=== PATIENT | female | born 2005 | race Caucasian/White ===

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

== ENCOUNTER → 2024-12-11 09:58 | Outpatient (BNV) | payer OTHER, SELFPAY | PROVIDERS: Emergency Provider Emergency Medicine Emergency Medical Services; PCP Registered Nurse; Visit Provider Radiology Diagnostic Radiology | DX: R22.42 Localized swelling, mass and lump, left lower limb (principal); S99.912A Unspecified injury of left ankle, initial encounter | CPT/HCPCS: 73610; 73620 ==

== ENCOUNTER 2024-12-11 10:28 | Emergency (ER) | payer OTHER, SELFPAY ==
--- NOTE | ~2024-12-11 | XR_ITS ---
CLINICAL HISTORY: rolled ankle 3 view left foot Comparison: None provided Findings: No fractures or dislocations. No significant loss of joint space, osteophytes, or erosions. No ankle effusion. No radiopaque foreign body. IMPRESSION: 1. No acute findings. This document has been electronically signed by: Radames Gutierrez MD on 12/11/2024 11:06:44
--- NOTE | ~2024-12-11 | XR_ITS ---
CLINICAL HISTORY: rolled ankle, swelling 3 view left ankle Comparison: None provided Findings: There is soft tissue swelling adjacent to the lateral malleolus. There are no acute bony abnormalities. No significant loss of joint space, osteophytes, or erosions. No ankle effusion. No radiopaque foreign body. IMPRESSION: There is soft tissue swelling adjacent to the lateral malleolus. There are no acute bony abnormalities. This document has been electronically signed by: Radames Gutierrez MD on 12/11/2024 11:07:19
[2024-12-11 10:36] VITALS: BP 122/72; PULSE 93; RESP 20; TEMP 37; O2SAT 97; BMI 31.5
--- NOTE | 2024-12-11 11:07 | ED_ITS ---
HPI - General Adult General Chief complaint: Extremity Injury, Lower Stated complaint: Ankle injury Time Seen by Provider: 12/11/24 11:03 Source: patient Mode of arrival: wheelchair Limitations: no limitations History of Present Illness ED Provider: Maryjo Poe PA-C HPI narrative: Patient is a 19 year old assigned female at with no reported medical history presenting to the emergency department today with left ankle pain. Patient states that last night she rolled her ankle twice while walking down some stairs. Patient denies any head strike or loss of consciousness with the i ncident. Patient denies any dizziness, lightheadedness, abdominal pain, nausea, vomiting, fever, chills, blurry vision, double vision, loss of vision, chest pain, difficulty breathing, shortness of breath, back pain, night sweats, pain with urination, increased urinary frequency, increased urinary urgency, blood in her urine or stool, syncope or a near syncopal episode, bowel incontinence, bladder incontinence, or any other complaints at this time. Onset (ago): day(s) (1) Location: left and lower extremity Relieving factors: immobilization Exacerbating factors: movement Associated symptoms: denies other symptoms Treatments prior to arrival: none Related Data Previous Rx's ?Medication ?Instructions ?Recorded albuterol sulfate 90 mcg/actuation 2 puff inhalation Q 4-6H PRN 11/11/20 aerosol inhaler (Ventolin HFA) shortness of breath or wheezing #8.5 grams amoxicillin 875 mg-potassium 1 tab PO BID #20 tabs 09/28 clavulanate 125 mg tablet (Augmentin) prednisone 20 mg tablet 40 mg (2 x 20 mg) PO DAILY # 10 tabs 11/11/20 Allergies Allergy/AdvReac Type Severity Reaction Status Date / Time No Known Allergies (No Known Allergy Verified 12/11/24 10:39 Allergies*) Review of Systems Constitutional: Constitutional: Reports no additional constitutional complaints, Denies chills, Denies fever(s) and Denies night sweats Eyes: Eyes: Reports no additional eye complaints, Denies blurry vision, Denies change in vision, Denies diplopia, Denies eye discharge, Denies loss of vision and Denies eye pain ENT: Denies dizziness Cardiovascular: Cardiovascular: Reports no additional cardiovascular complaints, Denies chest pain, Denies lightheadedness, Denies Loss of Consciousness and Denies dyspnea Respiratory: Respiratory: Reports no additional respiratory complaints and Denies dyspnea Gastrointestinal: Gastrointestinal: Reports no additional gastrointestinal complaints, Denies abdominal pain, Denies melena, Denies hematochezia, Denies change in bowel habits and Denies change in stool character Genitourinary: Genitourinary: Denies hematuria, Denies urinary frequency, Denies dysuria, Denies urinary incontinence, Denies urinary hesitancy and Denies urinary urgency Musculoskeletal: Musculoskeletal: Reports no additional musculoskeletal complaints, Denies numbness and Denies tingling Comments: left ankle pain Neurologic: Denies dizziness, Denies loss of vision, Denies numbness and Denies tingling Psychiatric: Psychiatric: Reports no additional psychiatric complaints Endocrine: Endocrine: Reports no additional endocrine complaints Hematologic/Lymphatic: Hematologic/Lymphatic: Reports no additional hematologic/lymphatic complaints Allergic/Immunologic: Allergic/Immunologic: Reports no additional allergic/immunologic complaints PMFSH Past Medical History Attestation statement: The following information was validated with the patient. Source: old records reviewed and nursing notes reviewed Medical History Rhinitis No known health problems Social History Social History Smoked in Last 30 Days: No Use of substances other than those prescribed or required for medical reasons: No Advance Directives: No Advance Directives Information Provided: No Patient : No Physical Exam ED Vital Signs: Vital Signs - 24 hr 12/11/24 10:36 12/11/24 11:44 Temperature 98.6 F 98.6 F Pulse Rate 93 93 Respiratory Rate 20 20 Blood Pressure 122/72 122/72 Pulse Oximetry 97 97 Oxygen Delivery Method Room Air Room Air BMI result Body Mass Index 31.5 Const General: cooperative, no acute distress, alert and awake Nutritional Appearance: well nourished Orientation/consciousness: patient oriented x3 HENMT Head: Yes normal to inspection and Yes atraumatic Ears: hearing grossly normal bilaterally and external ears normal General nose exam: Normal external nose present, no nasal discharge noted and no epistaxis Face and sinus: Yes normal facial exam, No abrasion and No laceration Mouth: Normal oral and palatal mucosa present, no drooling and no muffled voice Eyes General: appearance normal, both eyes and all related structures Periorbital: periorbital findings normal Eyelids: Yes eyelids normal Conjunctivae: conjunctivae normal Pupils: Equal, round and reactive pupils present EOM: EOMs intact bilaterally Neck Neck: Yes normal visual inspection, Yes full ROM and Yes no lymphadenopathy Resp Effort & Inspection: normal respiratory effort and able to speak in complete sentences Neuro General: patient oriented x3, moves all extremities and CN's II-XI intact bilaterally Cranial nerves: Yes Equal, round and reactive pupils present Cognition (Neuro): normal cognition Extrem Other: left lateral ankle swelling pain with palpation of the left lateral ankle limited ROM of the left lateral ankle secondary to pain General: Yes capillary refill normal Psych Appearance: grossly normal Mental Status: mental status grossly normal Affect: normal affect Attitude: cooperative Thought process: Normal thought process present Thought content: Normal thought content present Insight: Good insight present (Psych) Procedures Orthopedic Splinting/Casting Injury #1: Side: left Lower Extremity Injury Location: ankle Lower Extremity Immobilizer: boot orthosis Medical Decision Making Medical Decision Making MDM Narrative: Patient is a 19 year old assigned female at with no reported medical history presenting to the emergency department today with left ankle pain. Patient's physical exam was as noted in the physical exam portion of this note. Patient's left foot and ankle x-rays showed no acute process. I explained my physical exam findings as well as all test results to the patient. I answered all questions asked by the patient. Patient's clinical presentation is most consistent with a severe sprain / strain of the left ankle with concern for ligamentous injury. Patient's left ankle / foot was placed in a tall walking boot, without incident. Patient's PMS was intact prior to and after boot placement. Patient brought her own pair of crutches and demonstrated she is able to use crutches appropriately while in the department. I stressed the importance of the patient taking her medication as directed (either prescribed or as the over the counter packaging recommends). I stressed the importance of the patient following up with her primary care provider and the orthopedic team. I stressed the importance of the patient returning to the emergency department immediately if her symptoms were to worsen or if she were to develop any dizziness, shortness of breath, difficulty breathing, chest pain, blurry vision, loss of vision, nausea, vomiting, abdominal pain, fever, chills, back pain, or any other complaints. Patient verbalized agreement and understanding with this treatment plan and discharge. Differential Diagnosis Differential Diagnoses: The differential diagnosis associated with the presentation includes Left ankle sprain Left ankle strain Left ankle ligamentous injury Admission/Observation Consideration of admission/observation: Escalation of care including admission/observation considered Patient would have been admitted to the hospital had her work up had any findin gs where hospital admission was appropriate and her clinical presentation warranted hospital admission. Independent Interpretation I performed an independent interpretation of an: Plain X-Ray Interpretation: My interpretation is in agreement with the radiologist's impression of these imaging studies. CLINICAL HISTORY: rolled ankle, swelling 3 view left ankle Comparison: None provided Findings: There is soft tissue swelling adjacent to the lateral malleolus. There are no acute bony abnormalities. No significant loss of joint space, osteophytes, or erosions. No ankle effusion. No radiopaque foreign body. IMPRESSION: There is soft tissue swelling adjacent to the lateral malleolus. There are no acute bony abnormalities. This document has been electronically signed by: Radames Gutierrez MD on 12/11/2024 11:07:19 Dictated By: Radames Gutierrez MD Signed By: Electronically signed by Radames Gutierrez MD 12/11/24 1108 CLINICAL HISTORY: rolled ankle 3 view left foot Comparison: None provided Findings: No fractures or dislocations. No significant loss of joint space, osteophytes, or erosions. No ankle effusion. No radiopaque foreign body. IMPRESSION: 1. No acute findings. This document has been electronically signed by: Radames Gutierrez MD on 12/11/2024 11:06:44 Dictated By: Radames Gutierrez MD Signed By: Electronically signed by Radames Gutierrez MD 12/11/24 3719 Radiology Impression Discussion of test interpretation with radiology: I have reviewed the radiologist's reading. Discharge Plan Discharge Clinical Impression: Ankle sprain and strain Patient Disposition: Home, Self-Care Instructions: Ankle Sprain (DC), Walking Boot (ED) Additional Instructions: Your x-ray today showed no fractures / breaks however, given your mechanism of injury and your physical exam findings - I believe you have a severe strain and possible ligamentous injury. You have been placed in a tall walking boot. You must us this when ambulating for at least 2 weeks OR until you are cleared from it by the orthopedic team. Follow up with your primary care provider and the orthopedic group. Return to the emergency department immediately if your symptoms worsen or if you develop any numbness, tingling, dizziness, shortness of breath, difficulty breathing, chest pain, blurry vision, loss of vision, nausea, vomiting, abdominal pain, fever, chills, back pain, or any other complaints. Please see the information below about our Patient Portal. If you are not yet enrolled in the [facility] Patient Portal, you will receive an enrollment email invitation following your visit to any [facility] setting. You may also self-enroll in the Patient Portal by visiting our website: [email or web address] The following information is required to access the Patient Portal: - Your [facility] Medical Record Number - Your personal home email address (must match what is in your electronic medical record, Registration staff can assist with this) - Name - Date of Capabilities of the Patient Portal: - Message some providers - View upcoming appointments - Access your health summary, medical history, and visit history - View current conditions and allergies - View procedure and lab results - View your medications, including guidelines, side effects, and precautions - Complete pre-appointment questionnaires requested by your provider - Ready summary reports of your office visits and procedures To access the Patient Portal Mobile Cam, follow these directions: - Search [employer] in the Cam Store or Google Play Store - Download the Cam - Search for [facility] - Enter your login/password Prescriptions: No Action prednisone 20 mg tablet 40 mg PO DAILY Qty: 10 0RF amoxicillin-pot clavulanate [Augmentin] 875-125 mg tablet 1 tab PO BID Qty: 20 0RF albuterol sulfate [Ventolin HFA] 90 mcg/actuation HFA aerosol inhaler 2 puff inhalation Q4-6H PRN (Reason: shortness of breath or wheezing) Qty: 8.5 0RF Referrals: [facility] [Provider Group] Referral Note: Call to establish and follow up with the orthopedic team. Sourav Reddy PA-C [Primary Care Provider, Internal Medicine] Interventions: ED Discharge Assessment Last Done: 12/11/24 11:44 Discharge Date/Time: 12/11/24 11:44 Print Language: Estonian
--- OUTSIDE RECORDS SUMMARY | 2024-12-11 11:07 | XMS_ITS | Data Portability ---
Author Organization [facility], Main Office Address [address] [facility] [address] [place] [id number] Care Team Providers Care Machine Hoop Maker Helper Name Role Phone SHORTY REDDYROSACandice Primary Care Provider [phone] CHRISTOPHER TIMMONS Orthopedic Surgeon Assessment Encounter Date Assessment Date Assessment LastModified by Organization Details LastModified Time 10/24/2022 10/24/2022 This service was provided using telemedicine. Patient consented to video & audio visit Patient was located in the [facility]. Provider was located in the office. No other persons participated in the telemedicine visit except for the patient unless otherwise indicated here. Total time of visit was minutes. [email or web address] Not available 10/24/2022 09:49:51 11/14/2022 11/14/2022 This service was provided using telemedicine. Patient consented to Patient was located in the [facility]. Provider was located in the office. No other persons participated in the telemedicine visit except for the patient unless otherwise indicated here. Total time of visit was minutes. Not available 11/14/2022 09:35:07 Plan of Treatment Reminders Order Date Submit Date Provider Last Modified By Organization Details Last Modified Time Details Appointments None record ed. Lab lipid panel, serum 2024 025 LILIYA [facility] (Centralized Electronic Ordering - All Locations), Patient Can Go To The Location Of Their Choice, 12:05:56 CMP, serum or plasma 2024 025 LILIYA [facility] (Centralized Electronic Ordering - All Locations), Patient Can Go To The Location Of Their Choice, 12:05:52 TSH + free T4, serum 2024 025 LILIYA [facility] (Centralized Electronic Ordering - All Locations), Patient Can Go To The Location Of Their Choice, 12:05:53 CBC w/ auto diff 2024 025 LILIYA [facility] (Centralized Electronic Ordering - All Locations), Patient Can Go To The Location Of Their Choice, 12:05:55 vitami n D, 25-hyd maida, total, serum 2024 025 LILIYA [facility], [address], [place], [address], 12:05:56 Referral gyneco logist referr al - due for screen ing 2024 025 [email or web address] [facility], [address], [place], [address], 14:27:29 dermat ologis t referr al - Acne on face and back. 2022 023 [email or web address] [facility], [address], [address], [place], [address], 09:41:25 Procedures None record ed. Surgeries None record ed. Imaging None record ed. Medication Orders ProAir HFA 90 mcg/ac tuatio n aeroso l inhale r [address] [facility] [place]armacy #[id number], [address] [place], [address], 13:50:42 Zepbou nd 2.5 mg/0.5 mL subcut aneous pen inject or [address] [facility] ([place] [place]Pharmacy #[id number], [address] [place], [address], 5 05:01:14 Azelex 20 % topica l cream 2022 023 gay [id number], [address] [facility] [place], [address], 13:48:55 escita lopram 20 mg tablet 2022 023 [email or web address] [id number], [address] [facility] [place], [address], 15:39:37 escita lopram 10 mg tablet 2022 023 [email or web address] [id number], [address] [facility] [place], [address], 15:39:31 Patient TargetsNo targets recorded. Patient Instructions Encounter Date Encounter Id Patient Instructions Last Modified By Organization Details Last Modified Time 09/13/2022 [id number] depression treatment: care instructions [email or web address] Not available 09/13/2022 11:23:32 anxiety disorder : care instructions [email or web address] Not available 09/13/2022 11:23:32 starting a weigh t loss plan: care instructions [email or web address] Not available 09/13/2022 11:38:27 To call or retur n for worsening or concerns [email or web address] Not available 09/13/2022 11:26:27 10/24/2022 [id number] managing your allergies: care instructions [email or web address] Not available 10/24/2022 09:50:23 allergies: care instructions [email or web address] Not available 10/24/2022 09:50:23 To call or retur n for worsening or concerns [email or web address] Not available 10/24/2022 09:49:34 04/23/2023 [id number] acne: care instructions [email or web address] Not available 04/23/2023 16:01:49 08/27/2024 [id number] anal fissure: care instructions [email or web address] Not available 08/27/2024 14:16:22 Cervical Cancer Screening [email or web address] Not available 08/27/2024 13:56:03 To call or retur n for worsening or concerns [email or web address] Not available 08/27/2024 13:52:44 Reason for Referral [employer] Referral for A cne Acne on face and back. Referring Physician: Barbara Maldonado, Internal Medicine, Encounter Date: 04/23/2023 Data Base Administrator Referral for Sc reening for malignant neoplasm of cervix due for screening Referring Physician: Sourav Reddy, Family Medicine, Encounter Date: 08/27/2024 Results Created Date Observation Date Name Description Value Unit Range Abnormal Flag Note LastModifiedBy Organization Detail LastModifiedTime 08/23/1908/22/2022 UA W/REF NAZARIO CULTU RE appear/color YELLO W TURBI D Not Available [facility] (Centralized Electronic Ordering - All Locations) Patient Can Go To The Location Of Their Choice, 08/22/2022 14:36:26 08/23/1908/22/2022 UA W/REF NAZARIO CULTU RE sp. gravity 1.020 (1.002 -1.030 ) Not Available [facility] (Centralized Electronic Ordering - All Locations) Patient Can Go To The Location Of Their Choice, 08/22/2022 14:36:26 08/23/1908/22/2022 UA W/REF NAZARIO CULTU RE urine pH 6.0 (5.0-8 .0) Not Available [facility] (Centralized Electronic Ordering - All Locations) Patient Can Go To The Location Of Their Choice, 08/22/2022 14:36:26 08/23/1908/22/2022 UA W/REF NAZARIO CULTU RE urine albumin TRACE (neg) abnormal Not Available [facility] ([facility] Order[facility] - All Locations) Patient Can Go To The Location Of Their Choice, 08/22/2022 14:36:26 08/23/1908/22/2022 UA W/REF NAZARIO CULTU RE urine glucose NEGATI VE (neg) Not Available [facility] (Centralized Electronic Ordering - All Locations) Patient Can Go To The Location Of Their Choice, 08/22/2022 14:36:26 08/23/1908/22/2022 UA W/REF NAZARIO CULTU RE urine ketones NEGATI VE (neg) Not Available [facility] (Centralized Electronic Ordering - All Locations) Patient Can Go To The Location Of Their Choice, 08/22/2022 14:36:26 08/23/19 23 08/22/2022 UA W/REF NAZARIO CULTU RE urine bilirubin NEGATI VE (neg) Not Available [facility] (Centralized [facility] Ordering - All Locations) Patient Can Go To The Location Of Their Choice, 08/22/2022 14:36:26 08/23/19 23 08/22/2022 UA W/REF NAZARIO CULTU RE urine hemoglobin 1+ (neg) abnormal Not Available [facility] ([facility] Order[facility] - All Locations) Patient Can Go To The Location Of Their Choice, 08/22/2022 14:36:26 08/23/19 23 08/22/2022 UA W/REF NAZARIO CULTU RE urine nitrite NEGATI VE (neg) Not Available [facility] (Centralized Electronic Ordering - All Locations) Patient Can Go To The Location Of Their Choice, 08/22/2022 14:36:26 08/23/19 23 08/22/2022 UA W/REF NAZARIO CULTU RE urine leukocyte TRACE (neg) abnormal Not Available [facility] ([facility] Order[facility] - All Locations) Patient Can Go To The Location Of Their Choice, 08/22/2022 14:36:26 08/23/19 23 08/22/2022 UA W/REF NAZARIO CULTU RE urobilinogen NORMAL mg/dL (norm) Not Available [facility] ([facility] Order[facility] - All Locations) Patient Can Go To The Location Of Their Choice, 08/22/2022 14:36:26 08/23/19 23 08/22/2022 UA W/REF NAZARIO CULTU RE urine WBCs 6 /hpf (0-5) high Not Available [facility] (Centralized Electronic Ordering - All Locations) Patient Can Go To The Location Of Their Choice, 08/22/2022 14:36:26 08/23/19 23 08/22/2022 UA W/REF NAZARIO CULTU RE urine RBCs 2 /hpf (0-3) Not Available [facility] ([facility]ized [facility] Ordering - All Locations) Patient Can Go To The Location Of Their Choice, 08/22/2022 14:36:26 08/23/19 23 08/22/2022 UA W/REF NAZARIO CULTU RE bacteria HEAVY hpf (neg) abnormal Not Available [facility] ([facility] Ordering - All Locations) Patient Can Go To The Location Of Their Choice, 08/22/2022 14:36:26 08/23/1908/22/2022 UA W/REF NAZARIO CULTU RE mucus SLIGHT /lpf Not Available [facility] ([facility] Ordering - All Locations) Patient Can Go To The Location Of Their Choice, 08/22/2022 14:36:26 08/23/1908/22/2022 UA W/REF NAZARIO CULTU RE squamous epith 24 /hpf (0-8) high Not Available [facility] ([facility] Order[facility] - All Locations) Patient Can Go To The Location Of Their Choice, 08/22/2022 14:36:26 08/23/1908/22/2022 UA W/REF NAZARIO CULTU RE clarity TURBID (clear ) abnormal Not Available [facility] ([facility] Ordering - All Locations) Patient Can Go To The Location Of Their Choice, 08/22/2022 14:36:26 08/23/1908/22/2022 UA W/REF NAZARIO CULTU RE culture indication CULTUR E INDICA JULES Not Available [facility] ([facility]ized [facility] Ordering - All Locations) Patient Can Go To The Location Of Their Choice, 08/22/2022 14:36:26 08/23/1908/22/2022 COMPL ETE CBC WITH DIFF WBC 8.4 K/mm3 (4.0-1 1.0) Not Available [facility] (Centralized Electronic Ordering - All Locations) Patient Can Go To The Location Of Their Choice, 08/22/2022 15:00:45 08/23/1908/22/2022 COMPL ETE CBC WITH DIFF RBC 5.03 M/mm3 (4.20- 5.40) Not Available [facility] (Central[facility] Ordering - All Locations) Patient Can Go To The Location Of Their Choice, 08/22/2022 15:00:45 08/23/1908/22/2022 COMPL ETE CBC WITH DIFF HGB 14.3 gm/dL (11.7- 15.5) Not Available [facility] ([facility]ized Electronic Ordering - All Locations) Patient Can Go To The Location Of Their Choice, 08/22/2022 15:00:45 08/23/1908/22/2022 COMPL ETE CBC WITH DIFF HCT 44.1 % (35.7- 45.8) Not Available [facility] ([facility]ized Electronic Ordering - All Locations) Patient Can Go To The Location Of Their Choice, 08/22/2022 15:00:45 08/23/1908/22/2022 COMPL ETE CBC WITH DIFF MCV 87.7 fL (80.0- 100.0) Not Available [facility] (Centralized Electronic Ordering - All Locations) Patient Can Go To The Location Of Their Choice, 08/22/2022 15:00:45 08/23/1908/22/2022 COMPL ETE CBC WITH DIFF MCH 28.4 pg (27.0- 34.0) Not Available [facility] ([facility] Ordering - All Locations) Patient Can Go To The Location Of Their Choice, 08/22/2022 15:00:45 08/23/1908/22/2022 COMPL ETE CBC WITH DIFF MCHC 32.4 g/dL (33.0- 37.0) low Not Available [facility] ([facility] Ordering - All Locations) Patient Can Go To The Location Of Their Choice, 08/22/2022 15:00:45 08/23/1908/22/2022 COMPL ETE CBC WITH DIFF plt 375 K/mm3 (150-4 60) Not Available [facility] ([facility] Ordering - All Locations) Patient Can Go To The Location Of Their Choice, 08/22/2022 15:00:45 08/23/1908/22/2022 COMPL ETE CBC WITH DIFF RDW-SD 45.4 fL (<47.0 ) Not Available [facility] ([facility] Ordering - All Locations) Patient Can Go To The Location Of Their Choice, 08/22/2022 15:00:45 08/23/1908/22/2022 COMPL ETE CBC WITH DIFF MPV 9.3 fL (9.4-1 2.4) low Not Available [facility] ([facility] Ordering - All Locations) Patient Can Go To The Location Of Their Choice, 08/22/2022 15:00:45 08/23/1908/22/2022 COMPL ETE CBC WITH DIFF automated NRBC 0.0 #/100 _WBC' s Not Available [facility] ([facility] Ordering - All Locations) Patient Can Go To The Location Of Their Choice, 08/22/2022 15:00:45 08/23/1908/22/2022 COMPL ETE CBC WITH DIFF abs. NRBC 0.0 K/mm3 Not Available [facility] (Centralized [facility] Ordering - All Locations) Patient Can Go To The Location Of Their Choice, 08/22/2022 15:00:45 08/23/1908/22/2022 COMPL ETE CBC WITH DIFF neut # 5.1 K/mm3 (1.3-7 .0) Not Available [facility] (Centralized Electronic Ordering - All Locations) Patient Can Go To The Location Of Their Choice, 08/22/2022 15:00:45 08/23/1908/22/2022 COMPL ETE CBC WITH DIFF lymph # 2.4 K/mm3 (0.8-3 .1) Not Available [facility] ([facility]ized [facility] Ordering - All Locations) Patient Can Go To The Location Of Their Choice, 08/22/2022 15:00:45 08/23/1908/22/2022 COMPL ETE CBC WITH DIFF mono# 0.7 K/mm3 (0.4-0 .9) Not Available [facility] (Centralized Electronic Ordering - All Locations) Patient Can Go To The Location Of Their Choice, 08/22/2022 15:00:45 08/23/1908/22/2022 COMPL ETE CBC WITH DIFF eo # 0.1 K/mm3 (0.0-0 .4) Not Available [facility] ([facility] Ordering - All Locations) Patient Can Go To The Location Of Their Choice, 08/22/2022 15:00:45 08/23/1908/22/2022 COMPL ETE CBC WITH DIFF baso # 0.1 K/mm3 (0.0-0 .1) Not Available [facility] ([facility] Ordering - All Locations) Patient Can Go To The Location Of Their Choice, 08/22/2022 15:00:45 08/23/1908/22/2022 COMPL ETE CBC WITH DIFF abs. imm gran 0.0 K/mm3 Not Available [facility] ([facility] Order[facility] - All Locations) Patient Can Go To The Location Of Their Choice, 08/22/2022 15:00:45 08/23/1908/22/2022 COMPL ETE CBC WITH DIFF neut 60.4 % (44-76 ) Not Available [facility] ([facility] Electronic Ordering - All Locations) Patient Can Go To The Location Of Their Choice, 08/22/2022 15:00:45 08/23/1908/22/2022 COMPL ETE CBC WITH DIFF lymph 28.6 % (15-43 ) Not Available [facility] ([facility]ized Electronic Ordering - All Locations) Patient Can Go To The Location Of Their Choice, 08/22/2022 15:00:45 08/23/1908/22/2022 COMPL ETE CBC WITH DIFF monocyte 8.7 % (4.5-1 0.5) Not Available [facility] ([facility] Ordering - All Locations) Patient Can Go To The Location Of Their Choice, 08/22/2022 15:00:45 08/23/1908/22/2022 COMPL ETE CBC WITH DIFF eo 1.4 % (0-6) Not Available [facility] ([facility] Ordering - All Locations) Patient Can Go To The Location Of Their Choice, 08/22/2022 15:00:45 08/23/1908/22/2022 COMPL ETE CBC WITH DIFF baso 0.7 % (0-2) Not Available [facility] ([facility] Ordering - All Locations) Patient Can Go To The Location Of Their Choice, 08/22/2022 15:00:45 08/23/1908/22/2022 COMPL ETE CBC WITH DIFF imm gran 0.2 % Not Available [facility] ([facility] Ordering - All Locations) Patient Can Go To The Location Of Their Choice, 08/22/2022 15:00:45 08/23/1908/22/2022 COMPR EHENS BENJI METAB OLIC PANL glucose 90 mg/dL (70-99 ) Fasti ng Not Available [facility] ([facility] Ordering - All Locations) Patient Can Go To The Location Of Their Choice, 08/22/2022 16:44:49 08/23/1908/22/2022 COMPR EHENS BENJI METAB OLIC PANL BUN 7 mg/dL (6-20) Not Available [facility] ([facility] Ordering - All Locations) Patient Can Go To The Location Of Their Choice, 08/22/2022 16:44:49 08/23/19 23 08/22/2022 COMPR EHENS BENJI METAB OLIC PANL creatinine 0.7 mg/dL (0.5-1 .0) Not Available [facility] ([facility] Ordering - All Locations) Patient Can Go To The Location Of Their Choice, 08/22/2022 16:44:49 08/23/19 23 08/22/2022 COMPR EHENS BENJI METAB OLIC PANL sodium 139 mmol/ L (133-1 45) Not Available [facility] ([facility] Order[facility] - All Locations) Patient Can Go To The Location Of Their Choice, 08/22/2022 16:44:49 08/23/19 23 08/22/2022 COMPR EHENS BENJI METAB OLIC PANL potassium 4.7 mmol/ L (3.6-5 .2) Not Available [facility] ([facility] Order[facility] - All Locations) Patient Can Go To The Location Of Their Choice, 08/22/2022 16:44:49 08/23/1908/22/2022 COMPR EHENS BENJI METAB OLIC PANL chloride 103 mmol/ L (98-10 7) Not Available [facility] ([facility] Ordering - All Locations) Patient Can Go To The Location Of Their Choice, 08/22/2022 16:44:49 08/23/1908/22/2022 COMPR EHENS BENJI METAB OLIC PANL bicarbonate 27 mmol/ L (22-29 ) Not Available [facility] ([facility] Order[facility] - All Locations) Patient Can Go To The Location Of Their Choice, 08/22/2022 16:44:49 08/23/1908/22/2022 COMPR EHENS BENJI METAB OLIC PANL anion gap 9 (4-17) Not Available [facility] ([facility] Order[facility] - All Locations) Patient Can Go To The Location Of Their Choice, 08/22/2022 16:44:49 08/23/1908/22/2022 COMPR EHENS BENJI METAB OLIC PANL albumin 5.0 gm/dL (3.4-4 .8) high Not Available [facility] ([facility] Order[facility] - All Locations) Patient Can Go To The Location Of Their Choice, 08/22/2022 16:44:49 08/23/1908/22/2022 COMPR EHENS BENJI METAB OLIC PANL calcium 10.0 mg/dL (8.6-1 0.5) Not Available [facility] ([facility] Ordering - All Locations) Patient Can Go To The Location Of Their Choice, 08/22/2022 16:44:49 08/23/19 23 08/22/2022 COMPR EHENS BENJI METAB OLIC PANL bilirubin,to brent 0.5 mg/dL (0-1.2 ) Not Available [facility] ([facility] Ordering - All Locations) Patient Can Go To The Location Of Their Choice, 08/22/2022 16:44:49 08/23/1908/22/2022 COMPR EHENS BENJI METAB OLIC PANL total protein 7.6 gm/dL (6.2-8 .2) Not Available [facility] ([facility] Order[facility] - All Locations) Patient Can Go To The Location Of Their Choice, 08/22/2022 16:44:49 08/23/1908/22/2022 COMPR EHENS BENJI METAB OLIC PANL Ag ratio 1.9 Not Available [facility] ([facility] Ordering - All Locations) Patient Can Go To The Location Of Their Choice, 08/22/2022 16:44:49 08/23/1908/22/2022 COMPR EHENS BENJI METAB OLIC PANL AST 21 U/L (0-32) Not Available [facility] ([facility] Order[facility] - All Locations) Patient Can Go To The Location Of Their Choice, 08/22/2022 16:44:49 08/23/1908/22/2022 COMPR EHENS BENJI METAB OLIC PANL alk phos 102 U/L (35-10 4) Not Available [facility] ([facility] Ordering - All Locations) Patient Can Go To The Location Of Their Choice, 08/22/2022 16:44:49 08/23/19 23 08/22/2022 COMPR EHENS BENJI METAB OLIC PANL ALT 22 U/L (0-33) Not Available [facility] ([facility] Order[facility] - All Locations) Patient Can Go To The Location Of Their Choice, 08/22/2022 16:44:49 08/23/1908/22/2022 COMPR EHENS BENJI METAB OLIC PANL estimated GFR creatinine 126 mL/mi n/1.7 3_M2 Creat inine based estim ated glome rular filtr ation (eGFR ) in adult s is calcu lated using the Natio nal Kidne y Found ation recom wallace d 2020 CKD-E PI equat ion. Estim ates GFR from serum creat inine , age and sex. Not Available [facility] ([facility] Ordering - All Locations) Patient Can Go To The Location Of Their Choice, 08/22/2022 16:44:49 08/23/1908/22/2022 IRON & TIBC iron 107 mcg/d L (30-16 0) Not Available [facility] ([facility] Order[facility] - All Locations) Patient Can Go To The Location Of Their Choice, 08/22/2022 16:44:51 08/23/1908/22/2022 IRON & TIBC unsaturated iron binding capac 247 mcg/d L (110-3 70) Not Available [facility] ([facility] Order[facility] - All Locations) Patient Can Go To The Location Of Their Choice, 08/22/2022 16:44:51 08/23/1908/22/2022 IRON & TIBC est T. iron bind capacity 354 mcg/d L (140-5 30) Not Available [facility] ([facility] Order[facility] - All Locations) Patient Can Go To The Location Of Their Choice, 08/22/2022 16:44:51 08/23/1908/22/2022 IRON & TIBC % iron saturation 30 % (20-55 ) Not Available [facility] ([facility] Order[facility] - All Locations) Patient Can Go To The Location Of Their Choice, 08/22/2022 16:44:51 08/23/1908/22/2022 LIPID PANEL cholesterol, total 159 mg/dL (<170) Not Available [facility] ([facility] - [facility] Locations) Patient Can Go To The Location Of Their Choice, 08/22/2022 16:44:52 08/23/1908/22/2022 LIPID PANEL triglyceride 58 mg/dL (<90) Fasti ng Not Available [facility] ([facility] Order[facility] - All Locations) Patient Can Go To The Location Of Their Choice, 08/22/2022 16:44:52 08/23/1908/22/2022 LIPID PANEL HDL chol 54 mg/dL (>45) Not Available [facility] ([facility] Order[facility] - All Locations) Patient Can Go To The Location Of Their Choice, 08/22/2022 16:44:52 08/23/1908/22/2022 LIPID PANEL LDL cholesterol, calculated 93 mg/dL (0-109 ) Not Available [facility] ([facility] Order[facility] - All Locations) Patient Can Go To The Location Of Their Choice, 08/22/2022 16:44:52 08/23/1908/22/2022 LIPID PANEL non HDL cholesterol (calc) 105 mg/dL (<120) Not Available [facility] ([facility] - All Locations) Patient Can Go To The Location Of Their Choice, 08/22/2022 16:44:52 08/23/1908/22/2022 VITAM IN B12 vitamin B12 742 pg/mL (232-1 245) Not Available [facility] ([facility] Order[facility] - All Locations) Patient Can Go To The Location Of Their Choice, 08/22/2022 16:55:51 08/23/1908/22/2022 JAIRO TIN ferritin 21 NG/mL (6-70) Not Available [facility] ([facility] Order[facility] - All Locations) Patient Can Go To The Location Of Their Choice, 08/22/2022 16:55:53 08/23/1908/22/2022 FOLIC ACID folic acid 11.6 NG/mL (4.8-3 7.3) Not Available [facility] ([facility] Order[facility] - All Locations) Patient Can Go To The Location Of Their Choice, 08/22/2022 16:55:54 08/23/1908/22/2022 FREE T4 free T4 1.28 NG/dL (0.70- 1.80) Not Available [facility] ([facility] Order[facility] - All Locations) Patient Can Go To The Location Of Their Choice, 08/22/2022 16:55:55 08/23/1908/22/2022 TSH TSH 0.98 uIU/m L (0.4-4 .2) Not Available [facility] ([facility] Order[facility] - All Locations) Patient Can Go To The Location Of Their Choice, 08/22/2022 16:55:56 08/23/19 23 08/22/2022 25OH VITAM IN D 25OH vitamin D 21.2 NG/mL (20-50 ) Not Available [facility] ([facility] Order[facility] - All Locations) Patient Can Go To The Location Of Their Choice, 08/22/2022 16:55:57 08/23/1908/22/2022 URINE CULTU RE specimen description URINE Not Available [facility] ([facility] Loc[facility]) Patient Can Go To The Location Of Their Choice, 08/23/2022 13:18:40 08/23/1908/22/2022 URINE CULTU RE special requests NONE Reflex ed from [id number] Not Available [facility] ([facility] Order[facility] - All Locations) Patient Can Go To The Location Of Their Choice, 08/23/2022 13:18:40 08/23/19 23 08/23/2022 URINE CULTU RE culture abnormal 10-50 ,000 COL/M L STREP TOCOC US MITIS /STRE PTOCO CCUS ORALI S This isola te was ident ified using Maldi -TOF syste m SUSCE PTIBI LITY TESTI NG NOT ROUTI CHAZ PERFO RMED ON THIS ISOLA TE. Not Available [facility] ([facility] Order[facility] - All Locations) Patient Can Go To The Location Of Their Choice, 08/23/2022 13:18:40 08/23/1908/23/2022 URINE CULTU RE report status FINAL 2022 Not Available [facility] ([facility] Order[facility] - All Locations) Patient Can Go To The Location Of Their Choice, 08/23/2022 13:18:40 08/28/19 25 08/28/2024 CMP14 +EGFR glucose 91 mg/dL 70-99 normal Not Available [facility] ([facility]) [address] [facility], [place], [address], 08/28/2024 12:05:52 08/28/19 25 08/28/2024 CMP14 +EGFR BUN 7 mg/dL 6-20 normal Not Available [facility] ([facility]) [address] [facility] [place], [address], 08/28/2024 12:05:52 08/28/19 25 08/28/2024 CMP14 +EGFR creatinine 0.69 mg/dL 0.57-1 .00 normal Not Available [facility] ([facility]) [address] [place], [address], 08/28/2024 12:05:52 08/28/19 25 08/28/2024 CMP14 +EGFR eGFR 127 mL/mi n/1.7 3 >59 normal Not Available [facility] ([facility]) [address] [place], [address], 08/28/2024 12:05:52 08/28/19 25 08/28/2024 CMP14 +EGFR BUN/creatini ne ratio 10 9-23 normal Not Available [facility] ([facility]) [address] [place], [address], 08/28/2024 12:05:52 08/28/19 25 08/28/2024 CMP14 +EGFR sodium 141 mmol/ L 134-14 4 normal Not Available [facility] ([facility]) [address] [place], [address], 08/28/2024 12:05:52 08/28/19 25 08/28/2024 CMP14 +EGFR potassium 4.4 mmol/ L 3.5-5. 2 normal Not Available [facility] ([facility]) [address] [place], [address], 08/28/2024 12:05:52 08/28/19 25 08/28/2024 CMP14 +EGFR chloride 104 mmol/ L 96-106 normal Not Available [facility] ([facility]) [address] [facility] [place], [address], 08/28/2024 12:05:52 08/28/19 25 08/28/2024 CMP14 +EGFR carbon dioxide, total 19 mmol/ L 20-29 below low normal Not Available [facility] ([facility]) [address] [facility] [place], [address], 08/28/2024 12:05:52 08/28/19 25 08/28/2024 CMP14 +EGFR calcium 9.1 mg/dL 8.7-10 .2 normal Not Available [facility] ([facility]) [address] [facility] [place], [address], 08/28/2024 12:05:52 08/28/19 25 08/28/2024 CMP14 +EGFR protein, total 6.7 g/dL 6.0-8. 5 normal Not Available [facility] ([facility]) [address] [facility] [place], [address], 08/28/2024 12:05:52 08/28/19 25 08/28/2024 CMP14 +EGFR albumin 4.2 g/dL 4.0-5. 0 normal Not Available [facility] ([facility]) [address] [facility] [place], [address], 08/28/2024 12:05:52 08/28/19 25 08/28/2024 CMP14 +EGFR globulin, total 2.5 g/dL 1.5-4. 5 Not Available [facility] ([facility]) [address] [facility] [place], [address], 08/28/2024 12:05:52 08/28/19 25 08/28/2024 CMP14 +EGFR bilirubin, total 0.5 mg/dL 0.0-1. 2 normal Not Available [facility] ([facility]) [address] [facility] [place], [address], 08/28/2024 12:05:52 08/28/19 25 08/28/2024 CMP14 +EGFR alkaline phosphatase 88 IU/L 44-121 normal Not Available [facility] ([facility]) [address] [place], [address], 08/28/2024 12:05:52 08/28/19 25 08/28/2024 CMP14 +EGFR AST (SGOT) 27 IU/L 0-40 normal Not Available [facility] ([facility]) [address] [place], [address], 08/28/2024 12:05:52 08/28/19 25 08/28/2024 CMP14 +EGFR ALT (SGPT) 34 IU/L 0-32 above high normal Not Available [facility] ([facility]) [address] [place], [address], 08/28/2024 12:05:52 08/28/19 25 08/28/2024 TSH+F REE T4 TSH 1.280 uIU/m L 0.450- 4.500 normal Not Available [facility] ([facility]) [address] [place], [address], 08/28/2024 12:05:53 08/28/19 25 08/28/2024 TSH+F REE T4 T4,free(dire ct) 1.51 NG/dL 0.82-1 .77 normal Not Available [facility] ([facility]) [address] [place], [address], 08/28/2024 12:05:53 08/28/19 25 08/28/2024 CBC WITH DIFFE RENTI AL/PL ATELE T WBC 11.4 x10e3 /uL 3.4-10 .8 above high normal Not Available [facility] ([facility]) [address] [place], [address], 08/28/2024 12:05:55 08/28/19 25 08/28/2024 CBC WITH DIFFE RENTI AL/PL ATELE T RBC 5.65 x10e6 /uL 3.77-5 .28 above high normal Not Available [facility] ([facility]) [address] [place], [address], 08/28/2024 12:05:55 08/28/19 25 08/28/2024 CBC WITH DIFFE RENTI AL/PL ATELE T hemoglobin 17.9 g/dL 11.1-1 5.9 above high normal Not Available [facility] ([facility]) [address] [place], [address], 08/28/2024 12:05:55 08/28/19 25 08/28/2024 CBC WITH DIFFE RENTI AL/PL ATELE T hematocrit 52.2 % 34.0-4 6.6 above high normal Not Available [facility] ([facility]) [address] [place], [address], 08/28/2024 12:05:55 08/28/19 25 08/28/2024 CBC WITH DIFFE RENTI AL/PL ATELE T MCV 92 fL 79-97 normal Not Available [facility] ([facility]) [address] [place], [address], 08/28/2024 12:05:55 08/28/19 25 08/28/2024 CBC WITH DIFFE RENTI AL/PL ATELE T MCH 31.7 pg 26.6-3 3.0 normal Not Available [facility] ([facility]) [address] [place], [address], 08/28/2024 12:05:55 08/28/19 25 08/28/2024 CBC WITH DIFFE RENTI AL/PL ATELE T MCHC 34.3 g/dL 31.5-3 5.7 normal Not Available [facility] ([facility]) [address] [place], [address], 08/28/2024 12:05:55 08/28/19 25 08/28/2024 CBC WITH DIFFE RENTI AL/PL ATELE T RDW 12.5 % 11.7-1 5.4 Not Available [facility] ([facility]) [address] [facility] [place], [address], 08/28/2024 12:05:55 08/28/19 25 08/28/2024 CBC WITH DIFFE RENTI AL/PL ATELE T platelets 449 x10e3 /uL 150-45 0 normal Not Available [facility] ([facility]) [address] [facility], [place], [address], 08/28/2024 12:05:55 08/28/19 25 08/28/2024 CBC WITH DIFFE RENTI AL/PL ATELE T neutrophils 60 % not estab. normal Not Available [facility] ([facility]) [address] [facility], [place], [address], 08/28/2024 12:05:55 08/28/19 25 08/28/2024 CBC WITH DIFFE RENTI AL/PL ATELE T lymphs 29 % not estab. normal Not Available [facility] ([facility]) [address] [facility], [place], [address], 08/28/2024 12:05:55 08/28/19 25 08/28/2024 CBC WITH DIFFE RENTI AL/PL ATELE T monocytes 8 % not estab. normal Not Available [facility] ([facility]) [address] [facility], [place], [address], 08/28/2024 12:05:55 08/28/19 25 08/28/2024 CBC WITH DIFFE RENTI AL/PL ATELE T eos 2 % not estab. normal Not Available [facility] ([facility]) [address] [facility], [place], [address], 08/28/2024 12:05:55 08/28/19 25 08/28/2024 CBC WITH DIFFE RENTI AL/PL ATELE T basos 1 % not estab. normal Not Available [facility] ([facility]) [address] [place], [address], 08/28/2024 12:05:55 08/28/19 25 08/28/2024 CBC WITH DIFFE RENTI AL/PL ATELE T immature cells BOOTH CASHIER Not Available [facility] ([facility]) [address] [place], [address], 08/28/2024 12:05:55 08/28/19 25 08/28/2024 CBC WITH DIFFE RENTI AL/PL ATELE T neutrophils (absolute) 6.9 x10e3 /uL 1.4-7. 0 normal Not Available [facility] ([facility]) [address] [facility], [place], [address], 08/28/2024 12:05:55 08/28/19 25 08/28/2024 CBC WITH DIFFE RENTI AL/PL ATELE T lymphs (absolute) 3.3 x10e3 /uL 0.7-3. 1 above high normal Not Available [facility] ([facility]) [address] [place], [address], 08/28/2024 12:05:55 08/28/19 25 08/28/2024 CBC WITH DIFFE RENTI AL/PL ATELE T monocytes(ab solute) 0.9 x10e3 /uL 0.1-0. 9 normal Not Available [facility] ([facility]) [address] [place], [address], 08/28/2024 12:05:55 08/28/19 25 08/28/2024 CBC WITH DIFFE RENTI AL/PL ATELE T eos (absolute) 0.2 x10e3 /uL 0.0-0. 4 normal Not Available [facility] ([facility]) [address] [place], [address], 08/28/2024 12:05:55 08/28/19 25 08/28/2024 CBC WITH DIFFE RENTI AL/PL ATELE T baso (absolute) 0.1 x10e3 /uL 0.0-0. 2 normal Not Available [facility] ([facility]) [address] [place], [address], 08/28/2024 12:05:55 08/28/19 25 08/28/2024 CBC WITH DIFFE RENTI AL/PL ATELE T immature granulocytes 0 % not estab. Not Available [facility] ([facility]) [address] [facility], [place], [address], 08/28/2024 12:05:55 08/28/19 25 08/28/2024 CBC WITH DIFFE RENTI AL/PL ATELE T immature grans (abs) 0.0 x10e3 /uL 0.0-0. 1 Not Available [facility] ([facility]) [address] [place], [address], 08/28/2024 12:05:55 08/28/19 25 08/28/2024 CBC WITH DIFFE RENTI AL/PL ATELE T NRBC BOOTH CASHIER Not Available [facility] ([facility]) [address] [place], [address], 08/28/2024 12:05:55 08/28/19 25 08/28/2024 CBC WITH DIFFE RENTI AL/PL ATELE T hematology comments: BOOTH CASHIER Not Available [facility] ([facility]) [address] [place], [address], 08/28/2024 12:05:55 08/28/19 25 08/28/2024 LIPID PANEL cholesterol, total 155 mg/dL 100-19 9 normal Not Available [facility] ([facility]) [address] [place], [address], 08/28/2024 12:05:56 08/28/19 25 08/28/2024 LIPID PANEL triglyceride s 99 mg/dL 0-149 normal Not Available [facility] ([facility]) [address] [facility], [place], [address], 08/28/2024 12:05:56 08/28/19 25 08/28/2024 LIPID PANEL HDL cholesterol 41 mg/dL >39 normal Not Available [facility] ([facility]) [address] [facility], [place], [address], 08/28/2024 12:05:56 08/28/19 25 08/28/2024 LIPID PANEL VLDL cholesterol preeti 18 mg/dL 5-40 Not Available [facility] ([facility]) [address] [place], [address], 08/28/2024 12:05:56 08/28/19 25 08/28/2024 LIPID PANEL LDL chol calc ([facility]) 96 mg/dL 0-99 Not Available [facility] ([facility]) [address] [place], [address], 08/28/2024 12:05:56 08/28/19 25 08/28/2024 LIPID PANEL LDL calc comment: BOOTH CASHIER Not Available [facility] ([facility]) [address] [facility], [place], [address], 08/28/2024 12:05:56 08/28/19 25 08/28/2024 VITAM IN D, 25-HY DROXY vitamin D, 25-hydroxy 21.1 NG/mL 30.0-1 00.0 below low normal Vitam in D defic iency has been defin ed by the Insti tute of Medic ine and an Endoc rine Socie ty pract ice guide line as a level of serum 25-OH vitam in D less than 20 ng/mL (1,2) . The Endoc rine Socie ty went on to furth er defin e vitam in D insuf ficie ncy as a level betwe en 21 and 29 ng/mL (2). 1. IOM (Inst itute of Medic ine). 2010. Dieta ry refer ence carlyn es for calci um and DShaylee siddiqui [place]: The Natio nal [facility] Press . 2. Jairo macias MF, Jeniffer trujillo [place], Bispadmini off-F errar i LUNDBERG, et al. Evalu ation , treat ment, and preve ntion of vitam in D defic iency : an Endoc rine Socie ty clini preeti pract ice guide line. JCEM. 2010; 96(7) :1911 -30. Not Available [facility] ([facility]) [address] [facility], [place], [address], 08/28/2024 12:05:56 Result Notes None recorded. Problems Name Problem SNOMED Code Status Onset Date Resolution Date Notes Provider Name and Address Organization Details Recorded Time Acute secretor y otitis media 774513986 Completed 200812/29/2013 IMPRESSI ON: HEARING LOSS AND SPEEC DELAY; RECORDED 10/29/19 09 10:50AM BY MATTHEW COLLINS ON/LENA Reddy, [facility] [address], [place], [address], [facility] 6 13:05:10 Acute upper respirat ory infectio n [id number] Completed 201112/29/2013 RECORDED 10/27/19 12 12:55PM BY JILLIAN CORONA MD, MATTHEW ON/LENA Reddy, [facility] [address], [place], [address], [facility] 6 13:05:10 Allergic rhinitis 98528988 [facility] Lata salter [place] [facility], [facility] 0 10:16:10 Asthma 783802094 Completed 201112/29/2013 RECORDED 03/18/20 12 10:51AM BY SHALINI ROBERT MA, MATTHEW ON/LENA Reddy, [facility] [address] [facility] [address], [place], [address], [facility] 6 13:05:10 Well child [id number] Completed 201212/29/2013 RECORDED 04/17/20 13 12:57PM BY VERONICA PRASAD MA, SUSANATI ON/ADDEN DUM Natasha Johnson MA null, [facility] 7 09:19:39 Cough 51151176 Completed 201112/29/2013 RECORDED 04/24/20 12 9:53AM BY SHALINI ROBERT MA, MATTHEW ON/ADDEN DUM Natasha Johnson MA null, [facility] 7 09:19:50 Dysuria 24809714 Completed 201112/29/2013 RECORDED 10/27/19 12 12:55PM BY JILLIAN CORONA MD, ANNOTATI ON/ADDEN DUM Sourav Reddy, [facility] [address] [address], [place], [address], [facility] 6 13:05:11 Contact dermatit is [id number] Completed 201112/29/2013 RECORDED 03/18/20 12 10:51AM BY SHALINI ROBERT MA, ANNOTELOY ON/ADDEN DUM Sourav Reddy, [facility] [address], [place], [address], [facility] 6 13:05:10 Foreign body in skin of foot 838362713 Completed 201112/29/2013 RECORDED 10/27/19 12 12:55PM BY JILLIAN CORONA MD, ANNOTELOY ON/ADDEN DUM Sourav Reddy, [facility] [address] [facility] [address], [place], [address], [facility] 6 13:05:11 Pain in limb 64175412 Completed 201112/29/2013 RECORDED 05/19/20 12 10:11AM BY VERONICA PRASAD MA, MATTHEW ON/ADDEN DUM Sourav Reddy, [facility] [address] [facility] [address], [place], [address], [facility] 6 13:05:10 Headache 30090258 Completed 201212/29/2013 RECORDED 10/14/19 13 1:23PM BY SHAILNI ROBERT MA, MATTHEW ON/LENA Reddy, [facility] [address], [place], [address], [facility] 6 13:05:10 Migraine 82529904 Completed 201212/29/2013 IMPRESSI ON: HER HEADACHE S SOUND LIKE MIGRAINE S WHICH ARE NOT WELL TREATED WITH NSAIDS AND WHICH ARE FREQUENT AND INTERFER RING WITH SCHOOL. I WILL TRY NAPROSYN AND SHE SHOULD SEE HER PCP NEXT WEEK TO DISCUSS PROPHYLA XIS OR REFERRAL .; RECORDED 12/13/19 13 4:53PM BY VERONICA PRASAD MA, MATTHEW ON/LENA Reddy, [facility] [address], [place], [address], [facility] 6 13:05:10 Influenz a vaccine needed 38796054614 06 Completed 200812/29/2013 DATE: 02/09/20 09; RECORDED 03/18/20 12 10:51AM BY SHALINI ROBERT MA, MATTHEW ON/LENA Reddy, [facility] [address] [address], [place], [address], [facility] 6 13:05:11 Patient status finding [id number] Completed 12/18/2016 Natasha Johnson MA [facility] 7 09:19:44 Non-supp urative otitis media 406599024 Completed 201112/29/2013 RECORDED 10/27/19 12 12:55PM BY JILLIAN CORONA MD, MATTHEW ON/LENA Reddy, [facility] [address] [address], [place], [address], [facility] 6 13:05:10 Cough 25658077 Completed 12/18/2016 [facility] 7 09:19:[facility] Relapsin g fever 093143621 Completed 201112/29/2013 RECORDED 10/27/19 12 12:55PM BY JILLIAN CORONA MD, ANNOTATI ON/LENA Reddy, [address] [address], [place], [address], [facility] 6 13:05:10 Chronic sinusiti s 26929445 Completed 201312/29/2013 RECORDED 07/16/19 14 9:00AM BY VERONICA PRASAD MA, ANNOTELOY ON/LENA Reddy, [address] [address], [place], [address], [facility] 6 13:05:10 Chronic serous otitis media 91975987 Completed 201112/29/2013 RECORDED 03/18/20 12 10:51AM BY SHALINI ROBERT MA, MATTHEW ON/LENA Reddy, [facility] [address] [address], [place], [address], [facility] 6 13:05:10 Administ ration of diphther ia, pertussi s, and tetanus vaccine Completed 201212/29/2013 RECORDED 04/17/20 13 12:57PM BY VERONICA PRASAD MA, MATTHEW ON/LENA Reddy, [address] [address], [place], [address], [facility] 6 13:05:11 Constipa tion 28637037 Completed 201112/29/2013 RECORDED 10/27/19 12 12:55PM BY JLILIAN CORONA MD, ANNOTATI ON/LENA Reddy, [facility] [address], [place], [address], [facility] 6 13:05:10 Urinary tract infectio us disease 88584473 Completed 201212/29/2013 IMPRESSI ON: SUPRAX NOT AVAILABL E; RECORDED 05/18/20 13 9:27AM BY PAUL CAGE I, SUSANATI ON/LENA Reddy, [facility] [address], [place], [address], [facility] 6 13:05:10 Function al visual loss 085970275 Completed 201212/29/2013 RECORDED 04/17/20 13 12:57PM BY VERONICA PRASAD MA, SUSANATI ON/LENA Reddy, [facility] [address], [place], [address], [facility] 6 13:05:10 Acute secretor y otitis media 806255569 Completed 200801/18/2014 IMPRESSI ON: HEARING LOSS AND SPEEC DELAY; RECORDED 10/29/19 09 10:50AM BY MATTHEW COLLINS ON/LENA Reddy, [facility] [address], [place], [address], [facility] 6 13:05:10 Acute upper respirat ory infectio n 65913251 Completed 201101/18/2014 RECORDED 10/27/19 12 12:55PM BY JILLIAN CORONA MD, MATTHEW ON/LENA Reddy, [facility] [address], [place], [address], [facility] 6 13:05:10 Asthma 144534276 Completed 201101/18/2014 RECORDED 03/18/20 12 10:51AM BY SHALINI ROBERT MA, ANNOTATI ON/ADDEN DUM Sourav Reddy, [facility] [address] [facility] [address], [place], [address], [facility] 6 13:05:10 Well child 560027908 Completed 12/18/2016 Natasha Johnson MA null, [facility] 7 09:19:39 Cough 21604768 Completed 201101/18/2014 RECORDED 04/24/20 12 9:53AM BY SHALINI ROBERT MA, MATTHEW ON/ADDEN DUM Natasha Johnson MA null, [facility] 7 09:19:50 Dysuria 05752907 Completed 201101/18/2014 RECORDED 10/27/19 12 12:55PM BY JILLIAN CORONA MD, ANNOTELOY ON/ADDEN DUM Sourav Reddy, [facility] [address] [facility] [address], [place], [address], [facility] 6 13:05:11 Contact dermatit is [id number] Completed 201101/18/2014 RECORDED 03/18/20 12 10:51AM BY SHALINI ROBERT MA, MATTHEW ON/ADDEN DUM Sourav Reddy, [facility] [address], [place], [address], [facility] 6 13:05:10 Foreign body in skin of foot 759457495 Completed 201101/18/2014 RECORDED 10/27/19 12 12:55PM BY JILLIAN CORONA MD, ANNOTELOY ON/ADDEN DUM Sourav Reddy, [facility] [address] [facility] [address], [place], [address], [facility] 6 13:05:11 Pain in limb 69404384 Completed 201101/18/2014 RECORDED 05/19/20 12 10:11AM BY VERONICA PRASAD MA, MATTHEW ON/LENA Rdedy, [facility] [address] [facility] [address], [place], [address], [facility] 6 13:05:10 Headache 32968942 Completed 201201/18/2014 RECORDED 10/14/19 13 1:23PM BY SHALINI ROBERT MA, MATTHEW ON/LENA Reddy, [facility] [address] [facility] [address], [place], [address], [facility] 6 13:05:10 Migraine 85901599 Completed 201201/18/2014 IMPRESSI ON: HER HEADACHE S SOUND LIKE MIGRAINE S WHICH ARE NOT WELL TREATED WITH NSAIDS AND WHICH ARE FREQUENT AND INTERFER RING WITH SCHOOL. I WILL TRY NAPROSYN AND SHE SHOULD SEE HER PCP NEXT WEEK TO DISCUSS PROPHYLA XIS OR REFERRAL .; RECORDED 12/13/19 13 4:53PM BY VERONICA PRASAD MA, MATTHEW ON/LENA Reddy, [facility] [address] [facility] [address], [place], [address], [facility] 6 13:05:10 Influenz a vaccine needed 83264817407 06 Completed 200801/18/2014 DATE: 02/09/20 09; RECORDED 03/18/20 12 10:51AM BY SHALINI ROBERT MA, MATTHEW ON/LENA Reddy, [facility] [address], [place], [address], [facility] 6 13:05:11 Non-supp urative otitis media 943315580 Completed 201101/18/2014 RECORDED 10/27/19 12 12:55PM BY JILLIAN CORONA MD, MATTHEW ON/LENA Reddy, [facility] [address] [facility] [address], [place], [address], [facility] 6 13:05:10 Relapsin g fever 638785266 Completed 201101/18/2014 RECORDED 10/27/19 12 12:55PM BY JILLIAN CORONA MD, SUSANATI ON/ADDDANELLE Reddy, [facility] [address], [place], [address], [facility] 6 13:05:10 Chronic sinusiti s 00889720 Completed 201301/18/2014 RECORDED 07/16/19 14 9:00AM BY VERONICA PRASAD MA, MATTHEW ON/ADDEN YEFRI Reddy, [facility] [address], [place], [address], [facility] 6 13:05:10 Otitis media 47936435 Completed 12/18/2016 Natasha Johnson MA null, [facility] 7 09:19:57 Well child 127813504 Completed 201101/18/2014 RECORDED 03/18/20 12 10:51AM BY SHALINI ROBERT MA, MATTHEW ON/ADDDANELLE DUM Natasha Johnson MA null, [facility] 7 09:19:39 Chronic serous otitis media 94174036 Completed 201101/18/2014 RECORDED 03/18/20 12 10:51AM BY SHALINI ROBERT MA, MATTHEW ON/ADDEN YEFRI Reddy, [address], [place], [address], [facility] 6 13:05:10 Administ ration of diphther ia, pertussi s, and tetanus vaccine Completed 201201/18/2014 RECORDED 04/17/20 13 12:57PM BY VERONICA PRASAD MA, MATTHEW ON/ADDEN DUM Sourav Reddy, [facility] [address] [address], [place], [address], [facility] 6 13:05:11 Constipa tion 31095913 Completed 201101/18/2014 RECORDED 10/27/19 12 12:55PM BY JILLIAN CORONA MD, ANNOTATI ON/ADDEN DUM Sourav Reddy, [facility] [address], [place], [address], [facility] 6 13:05:10 Urinary tract infectio us disease 16387617 Completed 201201/18/2014 IMPRESSI ON: SUPRAX NOT AVAILABL E; RECORDED 05/18/20 13 9:27AM BY PAUL CAGE I, ANNOTATI ON/ADDEN DUM Sourav Reddy, [facility] [address], [place], [address], [facility] 6 13:05:10 Function al visual loss 789822474 Completed 201201/18/2014 RECORDED 04/17/20 13 12:57PM BY VERONICA PRASAD MA, SUSANATI ON/ADDEN DUM Sourav Reddy, [facility] [address], [place], [address], [facility] 6 13:05:10 Wheezing 07360341 Completed 12/18/2016 Sourav Reddy, [facility] [address], [place], [address], [facility] 5 14:53:17 Painful mouth 469419702 Completed 12/18/2016 HODAN Collins, [facility] 7 09:19:42 Scoliosi s of thoracic spine 582960775 Active Jona Maldonado PA-C [address], [place], [address], [facility] 6 11:19:46 Sprain of ankle 34294075 Completed 12/18/2016 HODAN Collins, [facility] 7 09:20:09 Thigh pain 71875905 Completed 12/18/2016 Natasha Johnson MA null, [facility] 7 09:20:00 Dry eyes 913333312 Active Chelly Reynolds sheila null, [facility] 6 17:03:35 Neck pain 40412245 Completed 12/18/2016 Natasha Johnson MA null, [facility] 7 09:20:06 Muscle spasm of cervical muscle of neck 35551241783 4 Active Chelly sosa null, [facility] 6 17:14:23 Fatigue 12415698 Active 2022 Sourav Reddy [address], [facility] [place], [address], [facility] 3 09:21:59 Anemia 379583977 Active 2022 Sourav Reddy [address], [facility] [place], [address], [facility] 3 09:22:02 Easy bruising 330473462 Active 2022 Sourav Reddy, [address], [facility] [place], [address], [facility] 3 09:22:06 Vitamin D deficien cy 60653990 Active 2022 Sourav Reddy [address], [facility] [place], [address], [facility] 3 09:22:43 Hyperlip idemia 33554616 Active 2022 Sourav Reddy [address], [facility] [place], [address], [facility] 3 09:23:52 Infectio n caused by Streptoc occus mitis group 104749692 Active 2022 Sourav Reddy, [facility] [address], [place], [address], [facility] 3 15:48:24 Generali zed anxiety disorder 27028648 Active 2022 Sourav Reddy, [facility] [address], [place], [address], [facility] 3 11:21:20 Mild recurren t major depressi on 00046338 Active 2022 Sourav Reddy, [facility] [address], [place], [address], [facility] 3 11:21:48 Acne 31903088 Active 2022 Barbara Maldonado PA-C [address], [place], [address], [facility] 3 15:56:49 Leukocyt osis 572750730 Active 2024 Sourav Reddy, [facility] [address], [place], [address], [facility] 5 13:54:33 Body mass index 30+ - obesity 463158445 Active 2024 Soruav Reddy, [facility] [address], [place], [address], [facility] 5 14:03:58 Anal fissure 39092111 Active 2024 Sourav Reddy, [facility] [address], [place], [address], [facility] 5 14:16:13 Wheezing 89618851 Active 2024 Sourav Reddy [facility] [address], [place], [address], [facility] 14:53:17 Problem Notes None recorded. Procedures Surgical History Date Name Laterality Status Provider Name and Address Organization Details Recorded Time 05/31/20 21 extraction of wisdom tooth completed LAURO Titus [address] [facility] [address], [place], [address], [facility] 08/27/2024 14:09:02 09/17/19 15 Developmental Screening completed LAURO Titus [address] [facility] [address], [place], [address], [facility] 09/16/2014 15:37:53 Adenoid Surgery completed Lis wong [facility] 09/16/2014 14:23:29 Imaging Results None recorded. Procedure Notes None recorded. Medical Equipment None Reported. Allergies No known drug allergies Medications Name Sig Start Date Stop Date Status Note LastModified by Organization Details LastModified Time ibuprofen 600 mg tabs active Not Available Not Available Not Available ibuprofen 400 mg tabs 12/01 completed Not Available Not Available Not Available fluticaso ne propionat e 50 mcg/act susp active Not Available Not Available Not Available proair hfa 108 (90 base) mcg/act aers active Not Available Not Available Not Available albuterol sulfate (2.5 mg/3ml) 0.083% [facility] 12/01 completed Not Available Not Available Not Available amoxicill in 500 mg capsule active Not Available Not Available Not Available monteluka st 5 mg chewable tablet DAILY 07/05 completed RECORDED 07/05/19 10 3:57PM BY CHELLY SOSA MD, ANNOTATI ON/ADDEN DUM; Not Available Not Available Not Available naproxen 375 mg tablet TWO TIMES DAILY, NEEDED 11/12 completed RECORDED 11/14/19 13 10:01AM BY GUY SOTO MD, MEDICATI ON AUTO-ANGELA CTIVATIO N; Not Available Not Available Not Available loratadin e 5 mg/5 mL oral solution DAILY 05/19 completed RECORDED 05/19/20 12 10:13AM BY VERONICA PRASAD MA, OFFICE VISIT; Not Available Not Available Not Available albuterol sulfate 2.5 mg/3 mL (0.083 %) solution for nebulizat ion INHALE CONTENTS OF 1 VIAL IN NEBULIZE R EVERY 4 TO 6 HOURS NEEDED 08/27 completed Not Available Not Available Not Available cetirizin e 10 mg tablet Take 1 tablet every day by oral route as directed for 30 days. 04/14 completed Not Available Not Available Not Available Retin-A 0.025 % topical cream PLEASE SEE ATTACHED FOR DETAILED DIRECTIO NS 08/27 completed Not Available Not Available Not Available ibuprofen 800 mg tablet TAKE 1 TABLET BY MOUTH EVERY 6 HOURS WITH FOOD 08/22 completed Not Available Not Available Not Available prednison e 20 mg tablet DAILY 05/01 completed Not Available Not Available Not Available AeroChamb er Plus-Medi um Mask NEEDED WITH PROAIR INHALER 03/25 completed RECORDED 04/24/20 12 9:52AM BY CHELLY SOSA MD, MEDICATI ON AUTO-ANGELA CTIVATIO N;ONE FOR SCHOOL AND ONE FOR HOME. Not Available Not Available Not Available benzoyl peroxide 10 % topical cleanser USE DAILY A BODY WASH 08/27 completed Not Available Not Available Not Available phentermi ne 15 mg capsule TAKE 1 CAPSULE EVERY DAY BY ORAL ROUTE BEFORE MEAL(S) FOR 30 DAYS. active Not Available Not Available No t Available Westcort 0.2 % topical ointment DAILY 05/19 completed RECORDED 05/19/20 12 10:14AM BY VERONICA PRASAD MA, OFFICE VISIT; Not Available Not Available Not Available sulfameth oxazole 800 mg-trimet hoprim 160 mg tablet 01/30 completed Not Available Not Available Not Available amoxicill in 500 mg tablet TWO TIMES DAILY 05/28 completed RECORDED 07/11/19 14 9:39PM BY CHELLY SOSA MD, MEDICATI ON AUTO-ANGELA CTIVATIO N; Not Available Not Available Not Available Azelex 20 % topical cream APPLY A THIN LAYER TO THE AFFECTED AREA(S) BY TOPICAL ROUTE 2 TIMES PER DAY IN THE MORNING AND EVENING 08/27 completed Not Available Not Available Not Available oxycodone -acetamin ophen 5 mg-325 mg tablet TAKE 1 TO 2 TABLETS EVERY 4 TO 6 HOURS NEEDED FOR PAIN 08/22 completed Not Available Not Available Not Available doxycycli ne monohydra te 100 mg capsule TAKE 1 CAPSULE BY MOUTH TWICE A DAY FOR 7 DAYS 08/22 completed Not Available Not Available Not Available diphenhyd ramine 25 mg capsule 12/18 completed Not Available Not Available Not Available fluoride 0.5 mg (1.1 mg sodium fluoride) chewable tablet DAILY 05/19 completed RECORDED 05/19/20 12 10:14AM BY VERONICA PRASAD MA, OFFICE VISIT; Not Available Not Available Not Available prednison e 50 mg tablet DAILY 07/16 completed RECORDED 12/18/19 14 9:04AM BY RAN CAZARES MA, OFFICE VISIT; Not Available Not Available Not Available triamcino lone acetonide 55 mcg nasal spray aerosol TWO TIMES DAILY 07/16 completed RECORDED 07/16/19 14 9:20AM BY VERONICA PRASAD MA, OFFICE VISIT; Not Available Not Available Not Available polymyxin B sulfate 10,000 unit-trim ethoprim 1 mg/mL eye drops 06/18 completed Not Available Not Available Not Available ibuprofen 400 mg tablet Take 1 tablet every 8 hours by oral route as directed for 30 days. 06/18 completed Not Available Not Available Not Available cefdinir 125 mg/5 mL oral suspensio n TWO TIMES DAILY 04/24 completed RECORDED 05/18/20 13 8:59AM BY MAKENZIE DELVALLE, MEDICATI ON AUTO-ANGELA CTIVATIO N; Not Available Not Available Not Available budesonid e 0.25 mg/2 mL suspensio n for nebulizat ion BID 07/17 completed RECORDED 07/17/19 11 4:18PM BY CHELLY SOSA MD, ANNOTATI ON/ADDEN DUM; Not Available Not Available Not Available amoxicill in 400 mg/5 mL oral suspensio n Take 10 mL twice a day by oral route for 7 days. 03/17 completed Not Available Not Available Not Available Nasal Saline 0.65 % spray aerosol TWO TIMES DAILY, NEEDED 03/10 completed RECORDED 03/10/20 13 10:23AM BY VERONICA PRASAD MA, OFFICE VISIT; Not Available Not Available Not Available Low-Ogest rel (28) 0.3 mg-30 mcg tablet TAKE 1 TAB TWICE A DAY X 7 DAYS, THEN 1 TAB A DAY. DISCARD PLACEBO PILLS FOR FIRST PACK 08/22 completed Not Available Not Available Not Available permethri n 1 % topical liquid NEEDED 01/05 completed RECORDED 04/03/20 10 3:35PM BY GUY SOTO MD, MEDICATI ON AUTO-ANGELA CTIVATIO N; Not Available Not Available Not Available Nasonex 50 mcg/actua tion Tivoli Tivoli 2 sprays every day by intranas al route. active Not Available Not Available No t Available azithromy jose 200 mg/5 mL oral suspensio n DAILY 07/17 completed RECORDED 08/17/19 09 11:05AM BY CHELLY SOSA MD, MEDICATI ON AUTO-ANGELA CTIVATIO N; Not Available Not Available Not Available methylpre dnisolone 4 mg tablets in a dose pack TAKE 6 TABLETS ON DAY 1 DIRECTED ON PACKAGE AND DECREASE BY 1 TAB EACH DAY FOR A TOTAL OF 6 DAYS 08/22 completed Not Available Not Available Not Available ibuprofen 100 mg/5 mL oral suspensio n TID/PRN 07/17 completed RECORDED 07/17/19 11 4:19PM BY CHELLY SOSA MD, ANNOTATI ON/ADDEN DUM; Not Available Not Available Not Available SF 5000 Plus 1.1 % dental cream Take by dental route for 12 days. 04/13 completed Not Available Not Available Not Available fluticaso ne propionat e 50 mcg/actua tion nasal spray,duy pension Tivoli by intranas al route as directed for 30 days. 04/14 completed Not Available Not Available Not Available medroxypr ogesteron e 150 mg/mL intramusc ular suspensio n Inject 1 mL every 3 months by intramus cular route. 08/19 completed Not Available Not Available Not Available loratadin e 10 mg tablet take 1 tablet by mouth once daily 04/14 completed Not Available Not Available Not Available naproxen 500 mg tablet Take 1 tablet twice a day by oral route as needed for 15 days. 04/14 completed Not Available Not Available Not Available amoxicill in 875 mg-potass ium clavulana te 125 mg tablet TAKE 1 TABLET BY MOUTH TWICE A DAY FOR 7 DAYS 04/23 completed Not Available Not Available Not Available erythromy jose-benzo yl peroxide 3 %-5 % topical gel APPLY TO AFFECTED AREAS TOPICALL Y TWICE DAILY IN THE MORNING AND THE EVENING 08/27 completed Not Available Not Available Not Available Ventolin HFA 90 mcg/actua tion aerosol inhaler INHALE 2 PUFFS INTO THE LUNGS EVERY 4 TO 6 HOURS NEEDED FOR 30 DAYS active Not Available Not Available No t Available albuterol (refill) 90 mcg/actua tion aerosol inhaler Q 4-6 HRS PRN 2013 active RECORDED 07/16/19 14 10:46AM BY CHELLY SOSA MD, REFILL REQUEST; PLEASE DISPENSE ANOTHER PROAIR FOR PATIENT SO SHE CAN HAVE AT SCHOOL. Not Available Not Available Not Available escitalop elise 10 mg tablet TAKE 1 TABLET BY MOUTH EVERY DAY DIRECTED 04/23 completed Not Available Not Available Not Available escitalop elise 20 mg tablet TAKE 1 TABLET BY MOUTH EVERY DAY DIRECTED 04/23 completed Not Available Not Available Not Available cyclobenz aprine 5 mg tablet Take 1 tablet every day by oral route for 30 days. 04/14 completed Not Available Not Available Not Available nitrofura ntoin monohydra te/macroc rystals 100 mg capsule Take 1 capsule every 12 hours by oral route for 7 days. 05/01 completed Not Available Not Available Not Available chlorhexi dine gluconate 0.12 % mouthwash RINSE MOUTH WITH 15ML (1 CAPFUL) FOR 30 SECONDS IN MORNING AND EVENING AFTER BRUSHING , THEN SPIT 08/22 completed Not Available Not Available Not Available nebulizer s DAILY 11/27 completed RECORDED 03/14/20 12 2:01PM BY SHALINI ROBERT MA, MEDICATI ON AUTO-ANGELA CTIVATIO N;DIAGNO SIS: ASTHMA Not Available Not Available Not Available Miralax DAILY 07/05 completed RECORDED 07/05/19 10 3:57PM BY CHELLY SOSA MD, ANNOTATI ON/LENA DUM; Not Available Not Available Not Available cholecalc iferol (vitamin D3) 50 mcg (2,000 unit) capsule TAKE 1 CAPSULE BY MOUTH EVERY DAY DIRECTED active Not Available Not Available No t Available Suprax 500 mg/5 mL oral suspensio n DAILY 04/17 completed RECORDED 04/17/20 13 2:55PM BY MAKENZIE DELVALLE, PHONE ENCOUNTE R; Not Available Not Available Not Available Liletta 20.4 mcg/24 hr (up to 8 years) 52 mg intrauter ine device active Not Available Not Available Not Available Clear Eyes Cooling Comfort 0.03 %-0.5 % drops Apply 0.25 mL 3 times a day by ophthalm ic route as directed for 30 days. 06/18 completed Not Available Not Available Not Available Zepbound 2.5 mg/0.5 mL subcutane ous pen injector Inject 0.5 mL every week by subcutan eous route as directed for 28 days. 10/01 completed PA DENIED 09/02/19 25 Not Available Not Available Not Available Vitals Date Recorded Body weight Body mass index (BMI) Body height Oxygen saturation Oxygen saturation in Arterial blood by Pulse oximetry Heart rate Body temperature Systolic And Diastolic Provider Name and Address Organization Details Last Updated DateTime 5 58021.4 7 g 32.3 kg/m2 167.64 cm 96 % 96 % 99 /min 98.1 [degF] 106/68 mm[Hg] Iva salter MA [facility] 5 13:44:40 Date Recorded Body weight Heart rate Oxygen saturation Oxygen saturation in Arterial blood by Pulse oximetry Body temperature Body mass index (BMI) [Percentile] Per age and sex Body mass index (BMI) Body height Systolic And Diastolic Provider Name and Address Organization Details Last Updated DateTime 3 36539.4 g 88 /min 98 % 98 % 97.3 [degF] 94 % 30 kg/m2 166.37 cm 135/83 mm[Hg] Stephanie Arita MA [facility] 3 11:04:53 Date Recorded Body height Provider Name an d Address Organization Details Last Updated DateTime 10/24/2022 166.37 cm Gilda Ordoñez [place] [facility] 10/24/2022 09:40:48 Date Recorded Body height Provider Name an d Address Organization Details Last Updated DateTime 11/14/2022 166.37 cm Stephanie Arita [place] [facility] 11/14/2022 09:35:15 Date Recorded Body height Body mass index (BMI) [Percentile] Per age and sex Body mass index (BMI) Body weight Oxygen saturation Oxygen saturation in Arterial blood by Pulse oximetry Heart rate Body temperature Systolic And Diastolic Provider Name and Address Organization Details Last Updated DateTime 3 166.37 cm 94 % 30.5 kg/m2 90705.2 8 g 98 % 98 % 89 /min 98.6 [degF] 108/66 mm[Hg] Natasha Johnson MA [facility] 3 15:38:49 Social History Question Answer Notes LastModified by Organizat ion Details LastModified Time Tobacco Smoking Status Never Smoker Veronica pederson [facility] 03/10/2014 11:47:04 Able To Swim? Yes Information not available 04/14/2019 Do You Have An Advance Directive? No Information not available 12/02/2015 Is Blood Transfusion Acceptable In An Emergency? Yes Information not available 12/02/2015 What Is Your Level Of Caffeine Consumption? Occasional Coffee 1-2 X Week Information not available 08/27/2024 How Much Tobacco Do You Chew? None Information not available 12/02/2015 What Type Of Diet Are You Following? REGULAR Information not available 09/16/2014 Which Illicit Or Recreational Drugs Have You Used? None Information not available 12/02/2015 Education 12 Information no t available 09/13/2022 What Is Your Home Situation? Mother Luci Bunn Information not available 04/14/2019 Live Alone Or With Others? With Others Sister Information not available 08/27/2024 How Often Do You Need To Have Someone Help You When You Read Instructions, Pamphlets, Or Other Written Material From Your Doctor Or Pharmacy? Always Information not available 12/02/2015 Have You Served In The ? No Information not available 04/14/2019 Have You Or Anyone In Your Household Had Any Of The Following Symptoms In The Last 14 Days: Sore Throat, Cough, Chills, Body Aches For Unknown Reasons, Shortness Of Breath For Unknown Reasons, Loss Of Smell, Loss Of Taste, Fever At Or Greater Than 100 Degrees Fahrenheit? No Information not available 03/09/2020 Are You Or Anyone In Your Household A Health Care Provider Or Emergency Responder? No Information not available 03/09/2020 To The Best Of Your Knowledge Have You Been In Close Proximity To Any Individual Who Tested Positive For COVID-19? No Information not available 03/09/2020 What Was The Date Of Your Most Recent Tobacco Screening? 08/27/2024 Information not available 08/27/2024 How Many Children Do You Have? 0 Information not available 09/16/2014 What Is Your Parents' Marital Status? Information not available 04/14/2019 What Is The Name Of Your School? [employer] Graduate Information not available 08/27/2024 Do You Use Your Seat Belt Or Car Seat Routinely? Yes Information not available 04/14/2019 Seat Belts Used Routinely Yes Information not available 12/02/2015 Are You Sexually Active? No Information not available 12/02/2015 Do You Have Any Siblings? 2 Information not available 09/16/2014 Smoke Alarm In Home Yes Information not available 12/02/2015 Do You Have Smoke And Carbon Monoxide Detectors In Your Home? Yes Information not available 04/14/2019 Are You Passively Exposed To Smoke? Yes Information not available 12/02/2015 How Much Tobacco Do You Smoke? No [email or web address] Information not available 01/30/2018 Do You Use Sunscreen Routinely? Yes Information not available 12/02/2015 Year In School HS Grad Informatio n not available 09/13/2022 How Many Years Have You Used E-cigarettes Or Vape? 6 Information not available 08/27/2024 Sex: Unknown Functional Status Question Answer Note LastModified by Organizat ion Details LastModified Time Do you use any illicit or recreational drugs? No Information not available 05/01/2021 Do you or have you ever used any other forms of tobacco or nicotine? Yes Information not available 08/27/2024 What is your level of alcohol consumption? Occasional Information not available 09/13/2022 Do you or have you ever used smokeless tobacco? Never used smokeless tobacco Information not available 04/14/2019 Are you currently employed? Yes Information not available 08/27/2024 Are you able to walk? YESWOREST Information not available 09/13/2022 Are you able to care for yourself? 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 Current user of electronic cigarettes started at age 13 Information not available 08/27/2024 What is your exercise level? Moderate walking/ running Information not available 09/13/2022 Mental Status Question Answer Note LastModified by Organization D etails LastModified Time Are you or have you been involved with bullying? No Information not available 04/14/2019 Family History Relationship Description Onset Age of this Age Resolved Age Notes LastModified by Organization Details LastModified Time Brother Diabetes mellitus [email or web address] Not available 2015 13:37:11 Maternal Aunt Diabetes mellitus [email or web address] Not available 2015 13:37:11 Unspecified Relation History of malignant neoplasm 2nd aunts and uncles [email or web address] s Not available 04/14/2019 13:07:48 Mother Hypertensive disorder 38 [email or web address] Not available 2017 15:42:05 Mother Congestive heart failure 37 diagno sed October 2016 jonna [email or web address] Not available 04/14/2019 13:07:25 Mother Disease of liver 38 Deceas ed 09/2020 [email or web address] Not available 09/13/2022 11:15:18 Mother Multiple organ failure 40 deceas ed September 2020 [email or web address] Not available 09/13/2022 11:16:22 Medical History Condition Response Coronary Artery Disease N Other N Gout N Kidney Stones N Blood Diseases N Hyperthyroidism N Breast Cancer N mrsa exposure N Hypothyroidism N Depression N COPD N Lung Disease N Developmental or Behavioral Disorders N Defects or Inherited Disease N Breast Problem N Anesthesia Complications N Headaches/Migraines N Varicose Veins N Anxiety Disorder N Muscle, Joint, or Bone Problems N Obesity N Vision or Eye Problems N Arthritis N Head Injury/Concussion N Polyps N Infertility N Mental Disorder N Congenital Anomalies N Acid Reflux (GERD) N Cancer N Stroke N ADHD N Endometriosis N High Cholesterol N Liver Disease N Headaches N Fibromyalgia N Kidney Disease N Heart Problems N Ear or Hearing Problems N Hospitalizations N Thyroid Problems N GI Problems N Developmental Delay N Acne N Skin Problems N Eating Disorder N Anemia N Constipation N Bladder Problems N Mental Illness N Ovarian Cancer N Diabetes N Bedwetting N Blood Transfusions N Seizures/Epilepsy N Heart Problems/Murmur N Tuberculosis N AIDS/HIV N Congestive Heart Failure (CHF) N Eczema N Diverticulitis N Abuse/Domestic Violence N Asthma N Allergies N Reflux/GERD N Hepatitis N Heart Disease N Pulmonary Embolism N Hypertension N Chicken Pox N Autism Spectrum Disorder (ASD) N Osteoporosis N Gynecological History Statement/Question Response Flow Light Menses Monthly Y Duration of Flow (days) 5 Age at Menarche 8 Current Control Method IUD LMP Approximate Desired Control Method IUD Obstetrics History GPAL:G 0 P 0 0 0 0 Immunizations Vaccine Type Date Status Note Provider Nam e and Address Organization Details Recorded Time Hep B, adolescent or pediatric 3 completed Not Available [facility] 12/22/2013 14:15:25 Hep B, adolescent or pediatric 4 completed Not Available [facility] 12/22/2013 14:15:25 IPV 4 completed Not Available [facility] 12/22/2013 14:15:25 DTaP 4 completed Not Available [facility] 12/22/2013 14:15:25 Hib (HbOC) 4 completed Not Available [facility] 12/22/2013 14:15:26 pneumococcal conjugate PCV 7 4 completed Not Available [facility] 12/22/2013 14:15:26 pneumococcal conjugate PCV 7 4 completed Not Available [facility] 12/22/2013 14:15:26 Hib (HbOC) 4 completed Not Available [facility] 12/22/2013 14:15:26 IPV 4 completed Not Available [facility] 12/22/2013 14:15:26 DTaP 4 completed Not Available [facility] 12/22/2013 14:15:26 Hib (HbOC) 4 completed Not Available [facility] 12/22/2013 14:15:26 Hep B, adolescent or pediatric 4 completed Not Available [facility] 12/22/2013 14:15:26 pneumococcal conjugate PCV 7 4 completed Not Available [facility] 12/22/2013 14:15:26 DTaP 4 completed Not Available [facility] 12/22/2013 14:15:26 IPV 4 completed Not Available [facility] 12/22/2013 14:15:26 DTaP 5 completed Not Available [facility] 12/22/2013 14:15:26 MMR 8 completed Not Available [facility] 12/22/2013 14:15:26 varicella 8 completed Not Available [facility] 12/22/2013 14:15:26 DTaP 8 completed Not Available [facility] 12/22/2013 14:15:26 IPV 8 completed Not Available [facility] 12/22/2013 14:15:26 MMR 5 completed Not Available [facility] 12/22/2013 14:15:26 Hib (HbOC) 5 completed Not Available [facility] 12/22/2013 14:15:26 pneumococcal conjugate PCV 7 6 completed Not Available [facility] 12/22/2013 14:15:26 Influenza, split virus, trivalent, preservative 9 completed Not Available [facility] 12/22/2013 14:15:26 Influenza, split virus, trivalent, preservative 9 completed Not Available [facility] 12/22/2013 14:15:26 Novel [id number], all formulations 0 completed Not Available [facility] 12/22/2013 14:15:26 Influenza, split virus, trivalent, preservative 0 completed Not Available [facility] 12/22/2013 14:15:26 Tdap 3 completed Not Available [facility] 12/22/2013 14:15:26 meningococcal MCV4P 5 completed Not Available [facility] 06/27/2019 02:21:51 Influenza, split virus, quadrivalent, PF 9 completed HODAN Collins, [facility] 04/23/2023 15:31:21 Tdap 5 completed HODAN Engle, [facility] 08/27/2024 13:48:17 HPV9 7 completed Not Available [facility] 06/27/2019 02:21:59 Influenza, split virus, trivalent, PF 4 completed Not Available [facility] 06/27/2019 02:21:57 HPV9 8 completed Not Available [facility] 06/27/2019 02:22:00 meningococcal MCV4P 0 completed HODAN De [place] [facility] 04/27/2020 12:00:20 HPV9 0 completed HODAN [place], [facility] 04/27/2020 11:59:13 Influenza, split virus, quadrivalent, PF 0 completed HODAN Engle, [facility] 04/25/2020 16:23:26 meningococcal B, OMV 1 completed HODAN Engle, [facility] 05/01/2021 11:48:21 Influenza, split virus, quadrivalent, PF 1 completed HODAN Engle, [facility] [place] 05/01/2021 11:48:22 Influenza, split virus, quadrivalent, PF 3 completed Barbara Maldonado PA-C [address] [address], [place], [address], [facility] [place] 04/23/2023 15:59:20 Past Encounters Encounter ID Performer Location Encounter Start Date Encounter Closed Date Diagnosis/Indication Diagnosis SNOMED-CT Code Diagnosis ICD10 Code Diagnosis Note [id number] auto[facility] erce [address] [facility],[address] [place] [address] 06/24/2007 00:00:00 [id number] auto[facility] erce [address] [facility],[address] [place] [address] 06/24/2007 00:00:00 [id number] auto[facility] erce [address] [facility],[address] [place] [address] 09/05/2007 00:00:00 [id number] auto[facility]Comm erce [address] [facility],[address] [place] [address] 09/05/2007 00:00:00 [id number] auto[facility]Comm erce [address] [facility],[address] [place] [address] 11/12/2007 00:00:00 [id number] auto[facility]Comm erce [address] [facility],[address] [place] [address] 11/12/2007 00:00:00 [id number] autoEComm erce [address] [facility],[address] [place] [address] 11/12/2007 00:00:00 [id number] auto[facility]Comm erce [address] [facility],[address] [place] [address] 06/15/2008 00:00:00 [id number] auto[facility]Comm erce [address] [facility],[address] [place] [address] 06/15/2008 00:00:00 [id number] auto[facility] erce [address] [facility],[address] [place] [address] 07/12/2008 00:00:00 [id number] [address]ce [address] [place] [address] 07/12/2008 00:00:00 [id number] auto[facility] [facility]ce [address] [place] [address] 08/16/2008 00:00:00 [id number] auto[facility]Comm erce [address] [place] [address] 08/16/2008 00:00:00 [id number] auto[facility] erce [address] [place] [address] 08/16/2008 00:00:00 [id number] auto[facility] erce [address] [place] [address] 10/05/2008 00:00:00 [id number] auto[facility] erce [address] [facility] [address] [place] [address] 10/28/2008 00:00:00 [id number] auto[facility]Comm erce [address] [facility] [address] [place] [address] 10/28/2008 00:00:00 [id number] auto[facility]Comm erce [address] [facility] [address] [place] [address] 12/06/2008 00:00:00 [id number] auto[facility]Comm erce [address] [facility],[address] [place] [address] 12/06/2008 00:00:00 [id number] auto[employer] erce [address] [facility] [address] [facility] [address] [place] [address] 02/08/2009 00:00:00 [id number] [employer] erce [address] [place] [address] 03/09/2009 00:00:00 [id number] auto[employer] erce [address] [facility] [address] [place] [address] 03/09/2009 00:00:00 [id number] autoEComm erce [address] [place] [address] 03/09/2009 00:00:00 [id number] autoEComm erce [address] [place] [address] 07/05/2009 00:00:00 [id number] autoEComm erce [address] [place] [address] 07/17/2010 00:00:00 [id number] autoEComm erce [address] [place] [address] 08/25/2010 00:00:00 [id number] autoEComm erce [address] [facility] [address] [place] [address] 08/25/2010 00:00:00 [id number] auto[employer]Comm erce [address] [facility] [address] [place] [address] 08/25/2010 00:00:00 [id number] autoEComm erce [address] [facility],[address] [place] [address] 10/18/2011 00:00:00 [id number] autoEComm erce [address] [facility],[address] [place] [address] 11/22/2011 00:00:00 [id number] autoEComm erce [address] [facility] [address] [place] [address] 03/18/2012 00:00:00 [id number] autoEComm erce [address] [facility],[address] [place] [address] 03/18/2012 00:00:00 [id number] auto[employer]Comm erce [address] [facility] [address] [place] [address] 04/24/2012 00:00:00 [id number] auto[employer] erce [address] [facility] [address] [place] [address] 04/24/2012 00:00:00 [id number] autoEComm erce [address] [facility],[address] [place] [address] 05/19/2012 00:00:00 [id number] auto[employer]Comm erce [address] [facility] [address] [place] [address] 05/19/2012 00:00:00 [id number] autoEComm erce [address] [facility] [address] [place] [address] 05/19/2012 00:00:00 [id number] autoEComm erce [address] [facility] [address] [place] [address] 10/13/2012 00:00:00 [id number] autoEComm erce [address] [place] [address] 01/02/2013 00:00:00 [id number] autoEComm erce [address] [facility] [address] [place] [address] 01/02/2013 00:00:00 [id number] autoEComm erce [address] [facility] [address] [place] [address] 03/10/2013 00:00:00 [id number] autoEComm erce [address] [facility] [address] [place] [address] 03/10/2013 00:00:00 [id number] autoEComm erce [address] [facility],[address] [place] [address] 03/10/2013 00:00:00 [id number] autoEComm erce [address] [facility] [address] [place] [address] 04/17/2013 00:00:00 [id number] autoEComm erce [address] [facility],[address] [place] [address] 04/17/2013 00:00:00 [id number] autoEComm erce [address] [facility],[address] [place] [address] 05/18/2013 00:00:00 [id number] autoEComm erce [address] [facility] [address] [place] [address] 05/18/2013 00:00:00 [id number] autoEComm erce [address] [facility],[address] [place] [address] 07/16/2013 00:00:00 [id number] autoEComm erce [address] [facility] [address] [place], [place] [address] 07/16/2013 00:00:00 [id number] autoEComm arleen 364Tameka [facility],[address] [place], [place] [address] 07/16/2013 00:00:00 [id number] autoEComm jimye 364T[address] [facility],[address] [place], [place] [address] 12/17/2013 00:00:00 [id number] Leona Ontiveros [facility] Main Office [address] [facility] [place] [address] 03/10/2014 11:20:07 03/10/2014 11:57:24 Needs influenza immunization [id number] Painful mouth 362797340 has an extruding tooth may have a secondary infx, will tx and pt to make appt with dentist [id number] Sourav Reddy [facility] Main Office [address] [facility] [place] [address] 09/16/2014 14:05:51 09/16/2014 15:34:53 Well child 581587570 PSC -17 score 20- positive test will need ASCEBA Growing and developing well. Age appropriat e anticipato ry guidance provided. Regular dental care and appropriat e car safety advised. Immunizati on status updated. Scoliosis of thoracic spine 796532156 Noted to have scoliosis at school, + exam, Mom would prefer PT at this time. [id number] Guy Sommer MD Main Office [address] [address] [place] [address] 07/11/2015 15:29:49 07/11/2015 16:53:56 Sprain of ankle 60729010 S93.402A wrap with an LEN bandage and elevate when possible. Out of gym/sports for [id number] [facility] Main Office [address] [address] [place] [address] 10/04/2015 12:46:53 10/04/2015 13:30:02 Thigh pain 97576717 M79.652 Will order femur XR to r/o stress fracture, likely quad sprain, continue ice 4 times daily, ibuprofen 3 times daily, elevate and continue use of crutches. Note provided, no gym or sports for another week, if no improvemen t by then please call back, may need referral for further eval. [id number] LAURO Titus Main Office [address] [address] [place] [address] 12/02/2015 12:45:14 12/02/2015 13:37:04 Well child 964436879 Z00.129 Growing and developing well. Age appropriat e anticipato ry guidance provided. Regular dental care and appropriat e car safety advised. Immunizati on status updated. Mom declines gardasil today. Dry eyes 231511823 H04.1 29 Patient /co eyes feeling dry ad burning sensation, eye drops help temporaril y. Recommend she use eye drops as frequently as needed 5-6 times daily. May need to see opthalmolo gy for further eval if frequent use of eye drops is not helpful. Scoliosis of thoracic spine 285224489 M41.34 PT referral was given at last [facility], but patient did not go, she denies back pain, not affecting daily activities . [id number] Jona Maldonado PA-C Main Office [address] [address] [place] [address] 12/14/2015 10:29:39 12/14/2015 11:22:24 Neck pain 74797832 M54.2 and trap. muscle pain/ spasm -- ? related to underlying scoliosis Scoliosis of thoracic spine 873102249 M41.34 [id number] Chelly ortiz MD Main Office [address] [address] [place] [address] 06/18/2016 09:50:50 06/18/2016 10:50:00 Well child 961688525 Z00.129 Irregular periods 761107 07 N92.6 Administra tion of viral vaccine 87304044 Z23 HPV 1 /repeat HPV 2 for 2018 Problemati c behavior in children 890093518 F91.1 pt doing well in CHD program//c aseworker w/ pt today. [id number] LAURO Titus Main Office [address] [address] [place] [address] 12/18/2016 09:13:26 12/18/2016 10:03:53 Well child 051109866 Z00.129 Growing and developing well. Age appropriat e anticipato ry guidance provided. Regular dental care and appropriat e car safety advised. Immunizati on status updated. Mom declines gardasil today. Allergic rhinitis 207691 04 J30.9 [id number] Chelly ortiz MD Main Office [address] [facility] [address] [place] [address] 07/26/2017 14:48:28 07/26/2017 15:44:12 Wheezing 64162781 R06.2 Calcaneal apophysitis 23 392963 M92.8 228005 LAURO Titus Main Office [address] [facility] [address] [place] [address] 01/30/2018 15:22:35 01/30/2018 16:18:57 Well child 240310685 Z00.129 Growing and developing well. Age appropriat e anticipato ry guidance provided. Regular dental care and appropriat e car safety advised. Immunizati on status updated. Administra tion of viral vaccine 90729979 Z23 Wheezing 04701670 R06.2 [id number] Guy Sommer MD Main Office [address] [facility] [address] [place] [address] 04/14/2019 12:55:08 04/14/2019 13:49:52 Well child 318336812 Z00.129 Growing and developing well. Age appropriat e anticipato ry guidance provided. Regular dental care and appropriat e car safety advised. Immunizati on status updated. Needs infl uenza immunization 565906907 Z23 Wheezing 75075637 R06.2 Contracept ion care management 729317906 Z30.9 wishes to start control for control of her menses and acne. discussed with Mom who is agreeable. patient will start with depo shot. side effects reviewed. she will need to fern picker the rx then come in every 3 months for the shot. Safe sex discussed. [id number] Jessica martin MD Main Office [address] [facility] [address] [place] [address] 04/20/2019 10:44:51 04/20/2019 11:19:01 Contraception care management 667982085 Z30.42 226125 Obinna Young MD Main Office [address] [address] [place] [address] 07/23/2019 15:01:18 07/23/2019 15:34:35 Contraception care management 438028608 Z30.42 [id number] Guy Sommer MD Main Office [address] [address] [place] [address] 08/04/2019 08:57:42 08/04/2019 09:32:47 Contraception care management 345105118 Z30.9 Discussed hormonal changes with patient and mom, this can be normal since it is her first time on OCP and some menstrual irregulari ties are expected. she may not get her menses on depo or may have breakthrou gh bleeding. Med is in her system until October, if her cycle normalizes she will continue depo. if she continues to have irregular bleeding she will contact us first. [id number] Guy Sommer MD Main Office [address] [address] [place] [address] 10/15/2019 14:17:23 10/15/2019 15:06:16 Contraception care management 087236917 Z30.42 [id number] Guy Sommer MD Main Office [address] [address] [place] [address] 03/03/2020 15:25:31 03/03/2020 15:51:49 Contraception care management 015855259 Z30.42 [id number] Guy Sommer MD [facility] [address] [address] [place] [address] 04/13/2020 09:00:12 04/13/2020 11:45:25 Exposure to sexually transmissible disorder 909605630 Z20.2 Menorrhagia 919888909 N9 2.0 patient notes bleeding daily x 4 months, foul odor but she is unable to describe it. Mom states she does not smell anything after going in the bathroom after her of ir she is around patient. Her last depo was 03/03 so she still has hormone from that in her system. she wishes to stop depo but will need to wait until it is out if ehr system. is interested in implant. Will refer to SERVICE CONSULTANT. She has PE 04/15 and may need pelvic exam if sx persist or worsen. Will check bloodwork. Anemia due to unknown mechanism 09896395 D64.9 Fatigue 31040346 R53.83 Dysuria 15463093 R30.9 notes some burning, will check urine. [id number] Jessica martin MD Main Office [address] [facility] [address] [place] [address] 04/25/2020 13:56:45 04/25/2020 15:20:36 Administration of viral vaccine 99542627 Z23 Requires a meningitis vaccination 693893694 Z23 Well child 034866069 Z00 .129 Child in good general health. Reviewed immunizati ons. Discussed diet, exercise, dental care, sexuality, prevention of substance abuse, smoking. I offered to set her up with counseling as she seems to have difficult relationsh ip with her mom and seem opposition al at the exam today. Pt refuses all attempts at reaching out and offering help. Denies SI, HI or abuse. Influenza vaccine needed 1170936758 106 Z23 Acne 81703586 L70.9 try gel 1-2 times a day, call if not improving. Scoliosis of thoracic spine 170625147 M41.34 discussed with mom, will hold off on xrays and followup with [facility] as likely more muscle spasm than true scoliosis. [id number] Jessica martin MD [facility] [address] [address] [place] [address] 08/19/2020 09:36:28 08/19/2020 14:25:58 Dysuria 71830647 R30.0 Push fluids, do lab before starting antibiotic treatment. Will go today for labs. Call if any fever or chills or GI sx. Pt states no chance of or STI but will still test per protocol Constipation 90652257 K5 9.00 sounds like single episode, would increase fluids and fiber, can try miralax if no BM later today. Call if bowel change is regular. [id number] Jessica martin MD Main Office [address] [place] [address] 05/01/2021 09:47:15 05/01/2021 11:45:43 Administration of viral vaccine 95374035 Z23 Grandmothe r ok for vaccine, pt not Well child 505465142 Z00 .129 Child in good general health. Reviewed immunizati ons. Discussed diet, exercise, dental care, sexuality, prevention of substance abuse, smoking. I offered to set her up with counseling as mom passed in September. Pt lives with her grandmothe r but mostly has parental guidance from her boyfriend' s parents. Pt declines counseling , will think about this;. Denies SI, HI or abuse. Counseling 033034480 Z71 .9 Referral for counseling with [facility]ory[facility] / MELO Garcia. Please provide patient with contact info to schedule their appointmen t. Estefania# email: [email or web address] Needs infl uenza immunization 316695735 Z23 GM permission received Acne 49926063 L70.9 try gel 1-2 times a day, call if not improving. Stress and adjustment reaction 625311676 F43.9 Pt refuses counseling , says she is ok, given Toya's informatio n to contact her. I will also ask Sourav BANEGAS to reach out to pt as she has known her for a longer time. [id number] Guy Sommer MD Telehealt h [address] [facility] [address] [place] [address] 08/22/2022 08:25:10 08/22/2022 09:39:07 Fatigue 84324702 R53.83 feeling fatigued, palpitatio ns, sob, and has easy bruising. will check labs. Anemia 311957869 D64.9 Easy bruising 968297810 R58 Vitamin D deficiency 347 27653 E55.9 Hyperlipidemia 69724670 E78.5 Asthma 727082671 J45.90 9 Acne 48966788 L70.9 [id number] Guy Sommer MD Main Office [address] [place] [address] 09/13/2022 10:54:06 09/13/2022 11:35:05 Adult health examination 289311214 Z00.00 Normal bloodwork in August, otherwise UTD Generalize d anxiety disorder 05275790 F41.1 SSRIs discussed at length with patient, takes a full 4-6 weeks to kick in, may feel worse in the 1st 2 weeks of therapy. Do not miss doses or stop med abruptly as this could cause discontinu ation syndrome (sweating, nausea, palpitatio ns, panic etc). It is recommende d to be on SSRI for at least 6 months for best efficacy. Only about 3% of people who start a med will get relief from the first med they try, it is trial and error, we can make changes to med dose, change med etc . F/u in 5 weeks for recheck. Mild recur rent major depression 91397899 F33.0 Body mass index 30+ - obesity 172987599 Z68.30 E66.9 [id number] Guy Sommer MD [address] [place] [address] 10/24/2022 09:04:45 10/24/2022 10:14:44 Generalized anxiety disorder 20072194 F41.1 MARK score 17/21.will increase to 20mg escitalopr am daily. do not miss doses or stop taking med abruptly. f/u in 4 weeks for recheck, if any side effects or cocnerns please call/ return. Mild recur rent major depression 45985877 F33.0 PHQ9 score 2- mild. Allergic rhinitis 477649 04 J30.9 she is taking jorge luis D, nasacort, using her inhaler and neti pot, delsym at bedtime. doing ok overall. [id number] Guy Sommer MD [address] [place] [address] 11/14/2022 08:31:59 11/14/2022 10:54:26 Dry eyes 892186989 H04.129 Patient /co eyes feeling dry ad burning sensation, eye drops help temporaril y. Recommend she use eye drops as frequently as needed 5-6 times daily. May need to see opthalmolo gy for further eval if frequent use of eye drops is not helpful. Generalize d anxiety disorder 60955555 F41.1 MARK score 17/21.will increase to 20mg escitalopr am daily. do not miss doses or stop taking med abruptly. f/u in 4 weeks for recheck, if any side effects or cocnerns please call/ return. Mild recur renmelissa major depression 31431362 F33.0 PHQ9 score 08/06- mild. [id number] Lauren Reagan MD Main Office [address] [facility] [address] [place] [address] 04/23/2023 15:28:57 04/23/2023 15:59:52 Needs influenza immunization 205290503 Z23 Acne 62265680 L70.9 recommend to see derm. Wait is long so pt will in the time being try Azelex cream. [id number] Guy Sommer MD Main Office [address] [facility] [address] [place] [address] 08/27/2024 13:20:13 08/27/2024 14:27:29 Adult health examination 993704404 Z00.00 HM - due for pap and bloodwork. Wheezing 13899184 R06.2 refill provided Leukocytosis 867323029 D 72.829 recheck labs Fatigue 47271290 R53.83 recheck labs Vitamin D deficiency 347 69320 E55.9 Screening for malignant neoplasm of cervix 247087010 Z12.4 due for pap, she will schedule Hyperlipidemia 13810667 E78.5 Body mass index 30+ - obesity 969842130 Z68.30 E66.9 The patient is over 18 years old, with a BMI over 30 kg/m. BMI 32.3, diff losing weight despite diet and exercise > 3 months. Actively engaging in behavioral modificati ons, including dietary changes and exercise, for more than three months and is committed to continuing these alongside the medication We discussed the injection technique, advising alternate injection sites weekly and cleaning the area with alcohol beforehand . The patient is to update me in two weeks about their progress, allowing for dose adjustment s as needed. Patient is also tasked with confirming medication availabili ty with the pharmacy. The patient is to monitor neck for any lumps and report any findings. Side effects discussed include gastrointe stinal issues such as constipati on, bowel obstructio n, nausea, and vomiting, with nausea and constipati on being particular ly common in the first two days post-injec tion. These symptoms usually subside with regular use. Instructed to avoid combining this treatment with other GLP-1 receptor agonists. Regular weight check was advised and will follow up in 3 months. Anal fissure 55228890 K6 0.2 recommend keeping stools soft, keeping clean and dry, may use aquaphor mixed with 1% hydrocorti sone 3-4 times daily as needed Health Concerns Section Related Observation LastModified by Organization Detai ls LastModified Time None Recorded Concern Status LastModified by Organization Details LastModified Time None Recorded Advance Directives Directive N: Payers Insurance Date Sequence Insurance Name Policy Number Policy Monahan Covered Member ID Monahan Member ID Guarantor Name 09/21/2024 1 [facility] (MEDICAID HMO) [id number] Adalberto Covarrubias [id number] Adalberto Covarrubias 09/21/2024 1 [facility] (MEDICAID HMO) [id number] Adalberto Covarrubias [id number] Adalberto Covarrubias 09/21/2024 2 [place] [facility] Adalberto Covarrubias [id number] Adalberto Covarrubias 09/21/2024 1 [facility] (MEDICAID HMO) Adalberto Covarrubias [id number] Adalberto Covarrubias 09/21/2024 1 [place] [facility] Adalberto Covarrubias [id number] Adalberto Covarrubias 09/21/2024 1 [facility] (MEDICAID REPLACEMENT - HMO) [id number] Adalberto Covarrubias [id number] Adalberto Covarrubias 09/21/2024 1 [facility] - MEDICAID ESSENTIAL (MEDICAID HMO) [id number] Adalberto Covarrubias [id number] Adalberto Covarrubias Notes Date Note Type Note Provider Name and Address Organization Details Recorded Time 09/13/2022 text/html Generic HPI TemplateReported bypatient.Notes:Video visit:Patient's Mother in September 2020. she has been struggling with this, does feel depressed. Is uncertain about medication and refuses therapy.Is working at a [employer] and loves it. Has a boyfriend and stays with him most of the time.Has been feeling more tired than normal, some tingling and has been getting massive bruises everywhere Bruising to legs in mutiple stages of healing, not painful, no bumping not things or falls, bruises are slightly tender to touch.No burning with urination.She is sleeping ok, + palpitations sometimes, sometimes SOB.Denies blood in stool, denies N/V/D, or constipation.+ headaches, no dizziness.No recent fever. Presents for PE, seen mid august as below. labs normal, had UTI that was treated but she was asymptomatic.Depressio n comes and goes, good and bad days. Does have anxiety, MARK score 12/21.Feels anxious about random stuff and random times , very overwhelmed and gets irritated quickly.Declines therapy.Feels scared about taking meds, is nervous she will not feel right. Does have a good support system. LAURO Titus [address] [address], [place], [address], [facility] 09/13/2022 11:39:00 10/24/2022 text/html Generic HPI TemplateReported bypatient.Notes:Video visit: in f.u as aboveStarted medication, has not felt any difference- taking it in the morning. No side effects.-allergies are bad currently.- has been more anxious, has some stuff going.-PHQ9 score 2/ 27 and MARK score 17/21- which is increased. Feels anxious about random stuff and random times , very overwhelmed and gets irritated quickly.Declines therapy.Feels scared about taking meds, is nervous she will not feel right. Does have a good support system. LAURO Titus [address] [facility] [address], [place], [address], [facility] 10/24/2022 09:55:17 04/23/2023 text/html 17 year old fema le c/o facial and back acne . Tries benzoyl peroxide products so far unsuccessfully. Barbara Maldonado PA-C [address] [address], [place], [address], [facility] 04/23/2023 16:02:06 08/27/2024 text/html Generic HPI TemplateReported bypatient.Notes:Presen ts for PE, doing well.Seen in ED in October with asthma attack, labs were off.Has liletta IUD- This is her 3rd type of control. was on depo but bled for 6 months, OCPs caused weight gain, IUD more stable but has been unable to lose weight.Exercises 4x/ week, diet is healthy, cheats sometimes. Sourav Reddy, [facility] [address] [facility] [address], [place], [address], [facility] 08/27/2024 14:53:28 OBGyn Episode No OBEpisode recorded.
[2024-12-11 11:44] VITALS: BP 122/72; PULSE 93; RESP 20; TEMP 37; O2SAT 97
== END 2024-12-11 11:44 | disposition home or self-care (01) ==
PROVIDERS: Emergency Provider Emergency Medicine Emergency Medical Services; PCP Registered Nurse
DX: S93.402A Sprain of unspecified ligament of left ankle, initial encounter (principal); M79.672 Pain in left foot; X58.XXXA Exposure to other specified factors, initial encounter; W10.9XXA Fall (on) (from) unspecified stairs and steps, initial encounter; Y93.9 Activity, unspecified; Y92.9 Unspecified place or not applicable; Y99.8 Other external cause status
CPT/HCPCS: 73610; 73620; 99283